=== PATIENT | female | born 1980 | race Caucasian/White ===

== ENCOUNTER 2021-12-26 12:06 | Emergency (ER) | payer OTHER, SELFPAY ==
--- NOTE | ~2021-12-26 | CT_ITS ---
CT head/brain wo IV con CLINICAL INFORMATION: Reason for Exam COY, L eye pain/blurry vision COMPARISON: No prior CT scan available for comparison. TECHNIQUE: Department standard protocol. This CT examination was performed using dose optimization techniques as appropriate, variously including the following: *Automated exposure control *Adjustment of mA and/or kV according to patient size (this includes techniques or standardized protocols for targeted exams where dose is matched to indication/reason for exam; i.e. extremities or head) *Use of iterative reconstruction technique DLP: mGy-cm FINDINGS: CEREBRAL HEMISPHERES: There is no evidence of intra-axial or extra-axial mass, hemorrhage or acute infarct. BRAIN PARENCHYMA: Normal louise-white matter differentiation. SUBDURAL SPACE: No bleed. BASAL GANGLIA AND PINEAL GLAND: Unremarkable VENTRICLES: Symmetric and normal in size. CEREBELLUM AND BRAINSTEM: No space-occupying mass, hemorrhage or acute infarct. CEREBELLOPONTINE ANGLES: No lesion found. ORBITS: No intraorbital mass. VESSELS: Unremarkable SKULL BASE: Unremarkable INCLUDED SINUSES AT SKULL BASE: Mucosal thickening of paranasal sinuses suggesting probably sinus disease. SKULL AND SKIN: No fracture or bone lesion found. CT/CT head/brain wo IV con IMPRESSION: 1. No CT evidence of intracranial space-occupying mass, bleed or infarct. 2. Mucosal thickening of paranasal sinuses suggesting sinus disease.
[2021-12-26 12:11] VITALS: BP 145/68; PULSE 99; RESP 18; O2SAT 99; BMI 28.5
[2021-12-26] MEDS: Butalb/Acetamin/Caff 50/325/40 TABLET 2 TAB PO (15:10)
[2021-12-26] MEDS: Metoclopramide HCl 10 MG TABLET PO (15:10)
--- NOTE | 2021-12-26 16:39 | ED_ITS ---
HPI - General Adult General Chief complaint: Eye Problems Stated complaint: L eye pain Time Seen by Provider: 12/26/21 13:21 Source: patient Mode of arrival: ambulatory Limitations: other ([place] educational interpreter #[id number]) History of Present Illness HPI narrative: 41-year-old female with a past medical history of pterygium s/p surgical excision in [place], migraines, presenting to the ED complaining of left-sided mi graine headache with pain behind left eye and associated blurry vision x1 week. Admits to similar symptoms in the past. Denies headache being maximal at onset. Reports mild associated nausea. Denies vision loss, vomiting, diarrhea, weakness, numbness/tingling. Denies taking anticoagulation. Has been taking Tylenol without relief. Onset (ago): week(s) Related Data Previous Rx's Medication Instructions Recorded azithromycin 250 mg tablet See Rx Instructions PO .COMPLEX #6 12/26/21 tabs [id number] 1 cap PO Q4-6H PRN headache #14 12/26/21 50 mg-300 mg-40 mg capsule caps (Fioricet) Allergies Allergy/AdvReac Type Severity Reaction Status Date / Time No Known Allergies Allergy Verified 12/26/21 14:34 Review of Systems Review of Systems: Constitutional: No Fever, No Chills, No Fatigue, No Malaise ENT/Mouth: No Hearing loss, No Ear Pain, No Nasal Congestion, No Sinus Pain, No sore throat, No Rhinorrhea, No Swallowing Difficulty Eyes: + Eye Pain, No Swelling, No Redness, No Foreign Body, No Discharge, + Vision Changes Cardiovascular: No Chest Pain, No SOB, No Dyspnea on Exertion, No Orthopnea, No Edema, No Palpitations Respiratory: No Cough, No Sputum, No Dyspnea Gastrointestinal: + Nausea, No Vomiting, No Diarrhea, No Constipation, No Abdominal pain Genitourinary: No irregular bleeding, No Dysuria, No Urinary Frequency, No Hematuria, No Urinary Incontinence/retention Musculoskeletal: No joint pain, No Myalgias, No Joint Swelling Skin: No Skin Lesions, No rash Neuro: No Weakness, No Numbness, No Paresthesias, No Loss of Consciousness, No Dizziness, + Headache Yes all other systems are reviewed and are negative Constitutional: Constitutional: Reports as per HPI Neurologic: Denies Abnormal speech present [facility] Past Medical History Attestation statement: The following information was validated with the patient. Social History Social History Advance Directives: No Advance Directives Information Provided: Yes Patient : No Physical Exam ED Vital Signs: Vital Signs - 24 hr 12/26/21 12:11 Pulse Rate 99 Respiratory Rate 18 Blood Pressure 145/68 H Pulse Oximetry 99 Oxygen Delivery Method Room Air BMI result Body Mass Index 28.5 Const General: cooperative, healthy appearing, no acute distress, alert and awake Orientation/consciousness: patient oriented x3 Limitations: no limitations HENMT Head: Yes normal to inspection and Yes atraumatic Ears: hearing grossly normal bilaterally, external ears normal, TM's normal bilaterally and mastoids normal General nose exam: Normal external nose present Face and sinus: Yes normal facial exam Mouth: Normal oral and palatal mucosa present Throat: Yes posterior oropharynx normal, Yes tonsils normal, Yes uvula midline, No peritonsillar mass, No uvula laterally displaced and No uvular edema Eyes General: appearance normal, both eyes and all related structures Periorbital: periorbital findings normal Eyelids: Yes eyelids normal Pupils: Equal, round and reactive pupils present EOM: EOMs intact bilaterally Direct Ophthalmoscopy: normal light reflex and no photophobia Neck Neck: Yes normal visual inspection and Yes no meningeal signs Resp Effort & Inspection: normal respiratory effort, not labored and no respiratory distress Auscultation: clear to auscultation bilaterally Cardio Rate: regular rate Heart sounds: S1 normal heart sound present and S2 normal heart sound present GI Inspection: Yes normal to inspection Skin Rashes: no rashes Wounds: no wounds Neuro General: patient oriented x3, gait normal, tone normal, moves all extremities, no meningeal signs, no focal motor deficits and CN's II-XI intact bilaterally Cranial nerves: Yes CN's II-XII intact bilaterally, Yes Equal, round and reactive pupils present and Yes Bilaterally intact EOM present Cognition (Neuro): normal cognition Speech: No Abnormal speech present Gait exam (Neuro): Normal gait present Motor exam (neuro): 5/5 motor strength present throughout, Pronator motor function not present and no tremor noted Coordination: rvdehq-xo-uwdy test normal Romberg Test: Negative Extrem General: Yes normal to inspection Course Course Course Narrative: CT head/brain wo IV con IMPRESSION: 1.? No CT evidence of intracranial space-occupying mass, bleed or infarct. 2.? Mucosal thickening of paranasal sinuses suggesting sinus disease. ? >> results discussed with patient with [place] educational interpreter #[id number]. Patient reports symptomatic improvement, near resolution after medications given in the emergency department. Patient also mentioned dyspareunia x years. Recommended patient follow-up with OBGYN. Also recommend patient follows up with Neurology and Ophthalmology Results discussed with patient including worrisome signs and symptoms and strict return precautions, and when to return to the emergency department. They verbalized understanding and feel safe for discharge at this time. Medications Administered Discontinued Medications Generic Name Dose Route Start Last Admin Trade Name Freq PRN Reason Stop Dose Admin Acetaminophen/Butalbital/Caffeine 2 tab 12/26/21 14:34 12/26/21 15:10 Butalb/Acetamin/Caff 50/325/40 Tablet PO 12/26/21 14:35 2 tab ONCE ONE Administration Metoclopramide HCl 10 mg 12/26/21 14:34 12/26/21 15:10 Metoclopramide Hcl 10 Mg Tablet PO 12/26/21 14:35 10 mg ONCE ONE Administration Medical Decision Making [facility] Narrative Medical decision making narrative: 41-year-old female with a past medical history of pterygium s/p surgical excision in [place], migraines, presenting to the ED complaining of left-sided migraine headache with pain behind left eye and associated blurry vision x1 week. On exam vital signs stable, NAD, nontoxic appearing, no focal neuro deficits, visual acuity 20/20 bilaterally. Concern for tension headache/migraine. Lower suspicion for ICH/cervical dissection/CVT or CVA/TIA. Plan: Head CT, pain management, re-evaluate Medical Records Medical records reviewed: Yes I reviewed the patient's medical records. Lab Data Lab results reviewed: Yes I reviewed the patient's lab results. Discharge Plan Discharge Clinical Impression: Acute tension headache, Pterygium Patient Disposition: Home, Self-Care Instructions: Tension Headache (ED), Pterygium (ED) Additional Instructions: Your head CT shows mild sinusitis, no other acute findings. Azithromax in as an antibiotic please take as prescribed Fioricet is for headaches, take as needed It is important for you to follow-up with Neurology, Ophthalmology, and OBGYN If her symptoms persist or worsen, you have constant worsening headache, vision loss, weakness return to the emergency department Sua tomografia de cr?nio mostra sinusite leve, bernardo outros achados agudos. Azithromax tan antibi?kirti, por favor, tome conforme prescrito Fioricet ? para dores de cabe?a, tome conforme necess?mayra ? importante que voc? fa?a acompanhamento com Neurologia, Oftalmologia e OBGYN Se os sintomas tomas persistirem ou piorarem, voc? tem piora rosa da sid de cabe?a, perda de vis?o, fraqueza retornar ao pronto-tai Prescriptions: New azithromycin 250 mg tablet See Rx Instructions .ROUTE .COMPLEX Qty: 6 0RF Rx Instructions: take 500 mg today (day 1), then 250 mg for 4 days (days 2-5) [id number]-[id number] [Fioricet] 50-300-40 mg capsule 1 cap PO Q4-6H PRN (Reason: headache) Qty: 14 0RF Referrals: [facility] [place] [facility] [Provider Group] [facility] [place] [facility] [Provider Group] Kain Casper [Physician] -
== END 2021-12-26 17:22 | disposition home or self-care (01) ==
PROVIDERS: Emergency Provider Emergency Medicine
DX: G44.209 Tension-type headache, unspecified, not intractable (principal); H11.002 Unspecified pterygium of left eye; H57.12 Ocular pain, left eye
CPT/HCPCS: 70450; 99283

== ENCOUNTER 2022-01-18 09:36 | Emergency (ER) | payer OTHER, SELFPAY ==
--- NOTE | ~2022-01-18 | CT_ITS ---
EXAMINATION: CT ABDOMEN AND PELVIS WITH CONTRAST CLINICAL INFORMATION: Pain COMPARISON: None TECHNIQUE: Multidetector volumetric images were obtained from the superior aspect of the liver through the pubic symphysis following administration 85 mL of Omnipaque 350 intravenous contrast. Sagittal and coronal reformatted images were obtained on the technologist's workstation. Oral contrast: None This CT examination was performed using dose optimization techniques as appropriate, variously including the following: *Automated exposure control *Adjustment of mA and/or kV according to patient size (this includes techniques or standardized protocols for targeted exams where dose is matched to indication/reason for exam; i.e. extremities or head) *Use of iterative reconstruction technique DLP: 377 mGy-cm FINDINGS: LUNG BASES: The visualized lung bases are unremarkable. LIVER, GALLBLADDER, AND BILIARY TREE: There is a lobular cyst, in the anterior right lobe liver at 17 mm. Liver is otherwise unremarkable. There is no biliary dilatation. The gallbladder is unremarkable with no evidence of radiopaque gallstones, gallbladder wall thickening, or obvious pericholecystic inflammatory changes. PANCREAS: Unremarkable. SPLEEN: Unremarkable. ADRENAL GLANDS: Unremarkable. KIDNEYS AND URETERS: The kidneys are normal in size, shape, and attenuation. No hydronephrosis, hydroureter, or calculi seen. No perinephric stranding. BLADDER: Bladder is thick walled and decompressed with mass effect on the left aspect of the bladder from the large fibroid. GASTROINTESTINAL TRACT: No bowel obstruction or right or left lower quadrant inflammatory change. Appendix is not clearly seen. Ileal loops however do appears slightly thickened and fluid-filled which could reflect enteritis. ABDOMINAL WALL: No significant hernia is appreciated. LYMPH NODES: Normal. VASCULAR: Unremarkable. PELVIC VISCERA: Abnormal. There is a large mass, within the anterior body of the uterus likely a fibroid. The mass appears to be intramural, at approximately 4.9 x 6.0 cm. Ultrasound with endovaginal technique. There is some fluid in the cul-de-sac and adjacent to the left ovary. Right adnexa unremarkable. OSSEOUS STRUCTURES: Mild wedge compression deformities in the lower thoracic spine are probably old. CT/CT abdomen pelvis w IV con IMPRESSION: Fibroid uterus. Physiologic process left ovary. Fluid-filled ileal loops may reflect enteritis. Recommend pelvic ultrasound with endovaginal technique.
--- NOTE | ~2022-01-18 | US_ITS ---
EXAMINATION: US PELVIS CLINICAL INFORMATION: Further evaluation of uterine lesions noted on prior CT. COMPARISON: CT abdomen/pelvis performed earlier today at 3:38 PM. TECHNIQUE: Ultrasound of the pelvis is performed using both transabdominal and transvaginal transducers along with Doppler. Transvaginal imaging is performed due to inadequate visualization transabdominally. FINDINGS: The uterus is enlarged measuring 9.4 x 6.8 x 8.1 cm with an anteverted and anteflexed orientation. There is a 6.6 x 5.6 x 5.5 cm lesion in the left upper myometrium. No other discrete focal lesion. The endometrium measures 1.5 cm without focal abnormality. The left ovary is asymmetrically enlarged when compared to the right ovary measuring 3.6 x 2.2 x 3.5 cm (14.5 mL) versus 2.7 x 2 x 2.1 cm (6 mL). There is preserved flow to both ovaries at the moment of this examination. There are nonspecific hyperechoic foci in the periphery of the right ovary. Nabothian cysts are seen in the cervix. There is a small volume of free fluid in the cul-de-sac and surrounding the left ovary. US/US pelvic and transvaginal IMPRESSION: Redemonstration of a 6.6 cm intramural left upper uterine mass, which statistically is seen favored to represent a fibroid. Given size, consider SURGICAL INSTRUMENT TECHNICIAN referral and edema appropriate correlation with a pelvic MRI. Nonspecific asymmetric enlargement of the left ovary, possibly associated with a corpus luteal cyst that is best noted on same-day CT. There is preserved flow to both ovaries. Hyperechoic foci in the periphery of the right ovary are nonspecific, possibly tiny calcifications. A follow-up pelvic ultrasound could be obtained in 6-12 weeks to reevaluate. Small amount of free fluid, likely physiologic.
[2022-01-18 09:44] VITALS: BP 122/87; PULSE 95; RESP 16; TEMP 36.9; O2SAT 99; BMI 24.5
[2022-01-18 09:58] LABS: MANUAL DIFF FLAG NO
[2022-01-18 10:00] LABS: Basophils Percent Auto 0.3 % (0-2); Eosinophils Percent Auto 0.3 % (0-4); Hematocrit 40.8 % (37.0-47.0); Hemoglobin 13.6 g/dl (12.0-16.0); Imm Gran Abs Auto 0.05 X10*3/uL (0.00-0.03); Imm Gran Pct Auto 0.3 % (0.0-0.4); Lymphocytes Absolute Auto 2.8 X10*3/uL (1.2-4.9); Lymphocytes Percent Auto 18.4 % (20-40); Mean Corpuscular HGB Conc 33.3 g/dl (31.0-35.0); Mean Corpuscular Hemoglobin 29.1 pg (27.0-33.0); Mean Corpuscular Volume 87.2 fL (80.0-98.0); Mean Platelet Volume 10.4 fL (9.4-12.3); Monocytes Absolute Auto 0.9 X10*3/uL (0.1-1.2); Monocytes Percent Auto 5.9 % (2-11); Neutrophils Absolute Auto 11.5 x10*3/uL (2.0-8.3); Neutrophils Percent Auto 74.8 % (45-73); Platelet Count 205 X10*3/uL (160-400); Red Blood Count 4.68 X10*6/uL (4.20-5.50); Red Cell Distribution Width 12.2 % (11.0-16.0); White Blood Count 15.3 X10*3/uL (4.8-10.8)
[2022-01-18 10:02] LABS: Appearance Urine Cloudy; Color Urine Dark Yellow; Glucose Urine UA Negative (Negative); Leukocyte Esterase Urine Large (3+) (Negative); Nitrite Urine Positive (Negative); PH 6.5 (5.0-9.0); UMIC TRIGGER UACC YES; UPreg QC Valid YES; Urine Blood Large (3+) (Negative); Urine Ketones Negative (Negative); Urine Protein 100 (2+) mg/dL (Neg-Trace)
[2022-01-18 10:03] LABS: Urine Pregnancy NEGATIVE (NEGATIVE)
[2022-01-18 10:10] LABS: Bacteria Urine 4+ (None Seen); Hyaline Casts Urine 0-2 /LPF (0-2); UACC Culture Trigger YES; WBC Clumps Urine Present; WBC Urine >50 /HPF (0-5)
[2022-01-18 10:21] LABS: Anion Gap 11 (12-20); Blood Urea Nitrogen 10 mg/dL (9-16); Carbon Dioxide 28 mmol/L (22-29); Chloride 105 mmol/L (96-108); Creatinine Clr Calc Pharmacy 96.5; Estimated Glomerular Filt Rate > 60; Glucose Random 103 mg/dL (60-115); Potassium 3.5 mmol/L (3.3-5.1); Sodium 140 mmol/L (135-145)
--- NOTE | 2022-01-18 14:27 | ED_ITS ---
HPI - General Adult General Chief complaint: Abdominal Pain <HUMERA Norris Last Filed: 01/18/22 17:57> Stated complaint: Abd pain sent from urgent care <HUMERA Norris Last Filed: 01/18/22 17:57> Time Seen by Provider: 01/18/22 14:27 <HUMERA Norris Last Filed: 01/18/22 17:57> Source: patient and japanese interpreter <HUMERA Norris Last Filed: 01/18/22 17:57> Mode of arrival: ambulatory <HUMERA Norris Last Filed: 01/18/22 17:57> Limitations: language barrier <HUMERA Norris Last Filed: 01/18/22 17:57> History of Present Illness HPI narrative: Patient is a 41 year old assigned female at with no reported medical history presenting to the emergency department today with abdominal pain. Patient states that over the last 3 days she has had lower abdominal pain and bilateral back pain. Patient denies any dizziness, lightheadedness, nausea, vomiting, fever, chills, blurry vision, double vision, loss of vision, chest pain, difficulty breathing, shortness of breath, night sweats, pain with urinat ion, increased urinary frequency, increased urinary urgency, blood in her urine or stool, syncope or a near syncopal episode, recent trauma or falls, bowel incontinence, bladder incontinence, bowel retention, bladder retention, or any other complaints at this time. <HUMERA Norris Last Filed: 01/18/22 17:57> Onset (ago): day(s) (3) <HUMERA Norris Last Filed: 01/18/22 17:57> Location: back and abdomen <HUMERA Norris Last Filed: 01/18/22 17:57> Severity: mild <HUMERA Norris Last Filed: 01/18/22 17:57> Severity scale (1-10): 3 <HUMERA Norris Last Filed: 01/18/22 17:57> Quality: aching and dull <HUMERA Norris Last Filed: 01/18/22 17:57> Pain Consistency: constant <HUMERA Norris Last Filed: 01/18/22 17:57> Relieving factors: none <HUMERA Norris - Last Filed: 01/18/22 17:57> Exacerbating factors: none <HUMERA Norris - Last Filed: 01/18/22 17:57> Associated symptoms: denies other symptoms <HUMERA Norris - Last Filed: 01/18/22 17:57> Treatments prior to arrival: none <HUMERA Norris - Last Filed: 01/18/22 17:57> Related Data Home medications: Previous Rx's Medication Instructions Recorded azithromycin 250 mg tablet See Rx Instructions PO .COMPLEX #6 12/26/21 tabs [id number]-jzhfzzskjnjcy-pocfvtck 1 cap PO Q4-6H PRN headache #14 12/26/21 50 mg-300 mg-40 mg capsule caps (Fioricet) cephalexin 500 mg capsule 500 mg PO Q6H 7 days #28 caps 01/18/22 <HUMERA Norris - Last Filed: 01/18/22 17:57> Allergies/adverse reactions: Allergies Allergy/AdvReac Type Severity Reaction Status Date / Time No Known Allergies Allergy Verified 12/26/21 14:34 <HUMERA Norris - Last Filed: 01/18/22 17:57> Review of Systems Constitutional: Constitutional: Reports no additional constitutional complaints, Denies chills, Denies fever(s) and Denies night sweats <HUMERA Norris - Last Filed: 01/18/22 17:57> Eyes: Eyes: Reports no additional eye complaints, Denies blurry vision, Denies change in vision, Denies diplopia, Denies eye discharge, Denies loss of vision and Denies eye pain <HUMERA Norris - Last Filed: 01/18/22 17:57> ENT: Denies dizziness <HUMERA Norris - Last Filed: 01/18/22 17:57> Cardiovascular: Cardiovascular: Reports no additional cardiovascular complaints, Denies chest pain, Denies lightheadedness, Denies Loss of Consciousness and Denies dyspnea <HUMERA Norris - Last Filed: 01/18/22 17:57> Respiratory: Respiratory: Reports no additional respiratory complaints and Denies dyspnea <HUMERA Norris - Last Filed: 01/18/22 17:57> Gastrointestinal: Gastrointestinal: Reports no additional gastrointestinal complaints, Reports abdominal pain, Denies melena, Denies hematochezia, Denies change in bowel habits and Denies change in stool character <HUMERA Norris - Last Filed: 01/18/22 17:57> Genitourinary: Genitourinary: Denies hematuria, Denies urinary frequency, Denies dysuria, Denies urinary incontinence, Denies urinary hesitancy and Denies urinary urgency <HUMERA Norris - Last Filed: 01/18/22 17:57> Musculoskeletal: Musculoskeletal: Reports no additional musculoskeletal complaints, Reports back pain, Denies numbness and Denies tingling <HUMERA Norris - Last Filed: 01/18/22 17:57> Neurologic: Denies dizziness, Denies loss of vision, Denies numbness and Denies tingling <HUMERA Norris - Last Filed: 01/18/22 17:57> Psychiatric: Psychiatric: Reports no additional psychiatric complaints <HUMERA Norris Last Filed: 01/18/22 17:57> Endocrine: Endocrine: Reports no additional endocrine complaints <HUMERA Norris - Last Filed: 01/18/22 17:57> Hematologic/Lymphatic: Hematologic/Lymphatic: Reports no additional hematologic/lymphatic complaints <HUMERA Norris Last Filed: 01/18/22 17:57> Allergic/Immunologic: Allergic/Immunologic: Reports no additional allergic/immunologic complaints <HUMERA Norirs - Last Filed: 01/18/22 17:57> REPLACED BY [facility] Past Medical History Attestation statement: The following information was validated with the patient. <HUMERA Norris Last Filed: 01/18/22 17:57> Source: old records reviewed <HUMERA Norris Last Filed: 01/18/22 17:57> Social History Social History: Social History Advance Directives: No Advance Directives Information Provided: Yes <HUMERA Norris - Last Filed: 01/18/22 17:57> Physical Exam ED Vital Signs: Vital Signs - 24 hr 01/18/22 09:44 01/18/22 15:02 12/06/22 18:33 Temperature 98.5 F 98.6 F Pulse Rate 95 95 79 Respiratory Rate 16 18 14 Blood Pressure 122/87 124/70 108/63 Pulse Oximetry 99 98 100 Oxygen Delivery Method Room Air Room Air Room Air BMI result Body Mass Index 24.5 <HUMERA Norris - Last Filed: 01/18/22 17:57> Vital Signs - 24 hr 01/18/22 09:44 01/18/22 15:02 01/18/22 18:33 Temperature 98.5 F 98.6 F Pulse Rate 95 95 79 Respiratory Rate 16 18 14 Blood Pressure 122/87 124/70 108/63 Pulse Oximetry 99 98 100 Oxygen Delivery Method Room Air Room Air Room Air BMI result Body Mass Index 24.5 <HUMERA Nettles - Last Filed: 01/18/22 18:50> Const General: cooperative, no acute distress, alert and awake <HUMERA Norris - Last Filed: 01/18/22 17:57> Nutritional Appearance: well nourished <HUMERA Norris - Last Filed: 01/18/22 17:57> Orientation/consciousness: patient oriented x3 <HUMERA Norris Last Filed: 01/18/22 17:57> Limitations: no limitations <HUMERA Norris - Last Filed: 01/18/22 17:57> HENMT Head: Yes normal to inspection and Yes atraumatic <HUMERA Norris - Last Filed: 01/18/22 17:57> Ears: hearing grossly normal bilaterally and external ears normal <HUMERA Norris - Last Filed: 01/18/22 17:57> General nose exam: Normal external nose present, no nasal discharge noted and no epistaxis <HUMERA Norris - Last Filed: 01/18/22 17:57> Face and sinus: Yes normal facial exam, No abrasion and No laceration <HUMERA Norris Last Filed: 01/18/22 17:57> Mouth: Normal oral and palatal mucosa present, no drooling and no muffled voice <HUMERA Norris - Last Filed: 01/18/22 17:57> Eyes General: appearance normal, both eyes and all related structures <Eli Garcia [place] - Last Filed: 01/18/22 17:57> Periorbital: periorbital findings normal <Eli Garcia [place] - Last Filed: 01/18/22 17:57> Eyelids: Yes eyelids normal <Eli Garcia [place] - Last Filed: 01/18/22 17:57> Conjunctivae: conjunctivae normal <Eli Garcia [place] - Last Filed: 01/18/22 17:57> Pupils: Equal, round and reactive pupils present <Eli Garcia [place] - Last Filed: 01/18/22 17:57> EOM: EOMs intact bilaterally <Eli Garcia [place] - Last Filed: 01/18/22 17:57> Neck Neck: Yes normal visual inspection, Yes full ROM and Yes no lymphadenopathy <Eli Garcia [place] - Last Filed: 01/18/22 17:57> Chest Chest palpation & inspection: normal inspection of the chest <Eli Garcia [place] - Last Filed: 01/18/22 17:57> Resp Effort & Inspection: normal respiratory effort and able to speak in complete sentences <Eli Garcia [place] - Last Filed: 01/18/22 17:57> Auscultation: clear to auscultation bilaterally <Eli Garcia [place] - Last Filed: 01/18/22 17:57> Cardio Rate: regular rate <Eli Garcia [place] - Last Filed: 01/18/22 17:57> Rhythm: regular rhythm <Eli Garcia [place] - Last Filed: 01/18/22 17:57> GI Inspection: Yes normal to inspection <Eli Garcia [place] - Last Filed: 01/18/22 17:57> Palpation (GI): Soft to palpation, not firm, nontender, no guarding and not rigid <Eli Garcia [place] - Last Filed: 01/18/22 17:57> Neuro General: patient oriented x3 and moves all extremities <Eli Garcia [place] - Last Filed: 01/18/22 17:57> Cranial nerves: Yes Equal, round and reactive pupils present <Eli Nevesmicky [place] - Last Filed: 01/18/22 17:57> Cognition (Neuro): normal cognition <EliHUMERA Vincent - Last Filed: 01/18/22 17:57> Motor exam (neuro): 5/5 motor strength present throughout <HUMERA Norris - Last Filed: 01/18/22 17:57> Sensory Exam: Normal double simultaneous stimulation for sensation <HUMERA Norris - Last Filed: 01/18/22 17:57> Coordination: egfrkq-le-uktl test normal <HUMERA Norris - Last Filed: 01/18/22 17:57> Extrem General: Yes normal to inspection, Yes full ROM and Yes capillary refill normal <HUMERA Norris - Last Filed: 01/18/22 17:57> Psych Appearance: grossly normal <HUMERA Norris - Last Filed: 01/18/22 17:57> Mental Status: mental status grossly normal <HUMERA Norris - Last Filed: 01/18/22 17:57> Affect: normal affect <HUMERA Norris - Last Filed: 01/18/22 17:57> Attitude: cooperative <HUMERA Norris - Last Filed: 01/18/22 17:57> Thought process: Normal thought process present <HUMERA Norris - Last Filed: 01/18/22 17:57> Thought content: Normal thought content present <HUMERA Norris - Last Filed: 01/18/22 17:57> Insight: Good insight present (Psych) <HUMERA Norris - Last Filed: 01/18/22 17:57> Course Reevaluation(s) Reevaluation #1: Ultrasound showing redemonstrated 6.6 intramural left upper uterine mass which was likely fibroid. Asymmetric enlargement of left ovary. Normal flow to both ovaries. Possible calcifications in the right ovary. Advised to follow-up with OBGYN. Outlined worrisome signs and symptoms on discharge gave her follow- up with OBGYN. Comfortable discharge <HUMERA Nettles - Last Filed: 01/18/22 18:50> Time: 18:50 <HUEMRA Nettles - Last Filed: 01/18/22 18:50> Medications Administered Discontinued Medications Generic Name Dose Route Start Last Admin Trade Name Freq PRN Reason Stop Dose Admin Iohexol 100 ml 01/18/22 15:41 12/06/22 15:42 Iohexol 350 Mg/Ml 100 Ml Infus..Btl IV 01/18/22 15:42 85 ml ONCE ONE Administration Ketorolac Tromethamine 15 mg 01/18/22 14:30 01/18/22 16:07 Ketorolac Tromethamine 15 Mg/Ml Vial IVPUSH 01/18/22 14:31 15 mg ONCE ONE Administration Morphine Sulfate 4 mg 01/18/22 14:30 01/18/22 16:07 Morphine Sulfate 4 Mg/Ml Cartridge IVPUSH 01/18/22 14:31 4 mg ONCE ONE Administration Protocol Ondansetron HCl 4 mg 01/18/22 14:30 01/18/22 16:08 Ondansetron Hcl 4 Mg/2 Ml Vial IVPUSH 01/18/22 14:31 4 mg ONCE ONE Administration <HUMERA Norris - Last Filed: 01/18/22 17:57> Medications Administered Discontinued Medications Generic Name Dose Route Start Last Admin Trade Name Lacey PRN Reason Stop Dose Admin Iohexol 100 ml 01/18/22 15:41 01/18/22 15:42 Iohexol 350 Mg/Ml 100 Ml Infus..Btl IV 01/18/22 15:42 85 ml ONCE ONE Administration Ketorolac Tromethamine 15 mg 01/18/22 14:30 01/18/22 16:07 Ketorolac Tromethamine 15 Mg/Ml Vial IVPUSH 01/18/22 14:31 15 mg ONCE ONE Administration Morphine Sulfate 4 mg 01/18/22 14:30 01/18/22 16:07 Morphine Sulfate 4 Mg/Ml Cartridge IVPUSH 01/18/22 14:31 4 mg ONCE ONE Administration Protocol Ondansetron HCl 4 mg 01/18/22 14:30 01/18/22 16:08 Ondansetron Hcl 4 Mg/2 Ml Vial IVPUSH 01/18/22 14:31 4 mg ONCE ONE Administration <HUMERA Nettles - Last Filed: 01/18/22 18:50> Medical Decision Making Medical Decision Making MDM Narrative: Patient is a 41 year old assigned female at with no reported medical history presenting to the emergency department today with abdominal pain. Patient's physical exam was unremarkable. Patient's blood work showed an elevated WBC count of 15.3. Patient's urine showed a possible UTI. Patient's abdominal CT showed a 4.9 x 6.0 cm mass in the uterus the radiologist believes to be a fibroid but recommends pelvis US. Fluid filled ileal loops are also seen which may represent enteritis. Patient's pelvic US is pending. I explained my physical exam findings as well as all test results to the patient. I answered all questions asked by the patient. Patient signed out to [employer]. <HUMERA Norris - Last Filed: 01/18/22 17:57> Differential Diagnoses: Differential diagnosis Differential Diagnosis: The differential diagnosis associated with the patient?s presentation includes: uterine fibroids, UTI <HUMERA Norris - Last Filed: 01/18/22 17:57> Lab Attestation: I reviewed the patient's lab results. <HUMERA Norris - Last Filed: 01/18/22 17:57> Independent interpretation of EKG, rhythm strip, radiology study: Independent interp EKG,rhythm strip, radiology study (This is not my interpretation but rather the radiologist's interpretation per their report) I performed an independent interpretation of the: CT Scan EXAMINATION: CT ABDOMEN AND PELVIS WITH CONTRAST? CLINICAL INFORMATION: Pain? COMPARISON: None? TECHNIQUE: Multidetector volumetric images were obtained from the superior aspect of the liver through the pubic symphysis following administration 85 mL of Omnipaque 350 intravenous contrast. Sagittal and coronal reformatted images were obtained on the technologist's workstation.? Oral contrast: None This CT examination was performed using dose optimization techniques as appropriate, variously including the following: *Automated exposure control *Adjustment of mA and/or kV according to patient size (this includes techniques or standardized protocols for targeted exams where dose is matched to indication/reason for exam; i.e. extremities or head) *Use of iterative reconstruction technique DLP: 377 mGy-cm FINDINGS: LUNG BASES: The visualized lung bases are unremarkable.? LIVER, GALLBLADDER, AND BILIARY TREE: There is a lobular cyst, in the anterior right lobe liver at 17 mm. Liver is otherwise unremarkable. There is no biliary dilatation. The gallbladder is unremarkable with no evidence of radiopaque gallstones, gallbladder wall thickening, or obvious pericholecystic inflammatory changes.? PANCREAS: Unremarkable.? SPLEEN: Unremarkable.? ADRENAL GLANDS: Unremarkable.? KIDNEYS AND URETERS: The kidneys are normal in size, shape, and attenuation. No hydronephrosis, hydroureter, or calculi seen. No perinephric stranding. ? BLADDER: Bladder is thick walled and decompressed with mass effect on the left aspect of the bladder from the large fibroid.? GASTROINTESTINAL TRACT: No bowel obstruction or right or left lower quadrant inflammatory change. Appendix is not clearly seen. Ileal loops however do appears slightly thickened and fluid-filled which could reflect enteritis. ABDOMINAL WALL: No significant hernia is appreciated.? LYMPH NODES: Normal. VASCULAR: Unremarkable. PELVIC VISCERA: Abnormal. There is a large mass, within the anterior body of the uterus likely a fibroid. The mass appears to be intramural, at approximately 4.9 x 6.0 cm. Ultrasound with endovaginal technique. There is some fluid in the cul-de-sac and adjacent to the left ovary. Right adnexa unremarkable.? OSSEOUS STRUCTURES: Mild wedge compression deformities in the lower thoracic spine are probably old.? CT/CT abdomen pelvis w IV con IMPRESSION: Fibroid uterus. Physiologic process left ovary. Fluid-filled ileal loops may reflect enteritis. Recommend pelvic ultrasound with endovaginal technique. Dictated By: Wei Adair MD Signed By: Electronically signed by Wei Adair MD 01/18/22 3213 <HUMERA Norris - Last Filed: 01/18/22 17:57> Discharge Plan Discharge Clinical Impression: Enteritis, Uterine fibroid, Urinary tract infection <HUMERA Norris - Last Filed: 01/18/22 17:57> Patient Disposition: Still a Patient <HUMERA Norris - Last Filed: 01/18/22 17:57> Instructions: Urinary Tract Infection in Women (ED), Enteritis (ED) <HUMERA Norris - Last Filed: 01/18/22 17:57> Additional Instructions: Follow up with your primary care provider and your OBGYN. Return to the emergency department immediately if your symptoms worsen or if you develop any dizziness, shortness of breath, difficulty breathing, chest pain, blurry vision, loss of vision, nausea, vomiting, abdominal pain, fever, chills, back pain, or any other complaints. US/US pelvic and transvaginal IMPRESSION: Redemonstration of a 6.6 cm intramural left upper uterine mass, which statistically is seen favored to represent a fibroid. Given size, consider HEAVY EQUIPMENT RENTAL MANAGER referral and edema appropriate correlation with a pelvic MRI. ? Nonspecific asymmetric enlargement of the left ovary, possibly associated with a corpus luteal cyst that is best noted on same-day CT. There is preserved flow to both ovaries. ? Hyperechoic foci in the periphery of the right ovary are nonspecific, possibly tiny calcifications. A follow-up pelvic ultrasound could be obtained in 6-12 weeks to reevaluate. ? Small amount of free fluid, likely physiologic. IMPRESSION: Fibroid uterus. Physiologic process left ovary. Fluid-filled ileal loops may reflect enteritis. Recommend pelvic ultrasound with endovaginal technique. <HUMERA Norris - Last Filed: 01/18/22 17:57> Prescriptions: New cephalexin 500 mg capsule 500 mg PO Q6H 7 Days Qty: 28 0RF No Action azithromycin 250 mg tablet See Rx Instructions .ROUTE .COMPLEX Qty: 6 0RF Rx Instructions: take 500 mg today (day 1), then 250 mg for 4 days (days 2-5) hfgnqjhfgj-waeajjfbtqxpu-inpv [Fioricet] 50-300-40 mg capsule 1 cap PO Q4-6H PRN (Reason: headache) Qty: 14 0RF <HUMERA Norris - Last Filed: 01/18/22 17:57> Referrals: [facility] [Provider Group] (Call to establish and follow up with a primary care provider. If you already have a primary care provider, please follow up with them. ) [facility], [place] [Provider Group] (Call to establish and follow up with a primary care provider. If you already have a primary care provider, pl ease follow up with them. ) [facility],[place] [Provider Group] (Call to establish and follow up with a primary care provider. If you already have a primary care provider, please follow up with them. ) Topher Trent MD [Physician] - (Call to establish and follow up with an OB. ) <HUMERA Norris - Last Filed: 01/18/22 17:57> Stand Alone Forms: Work/School Release <HUMERA Norris - Last Filed: 01/18/22 17:57>
[2022-01-18 15:02] VITALS: BP 124/70; PULSE 95; RESP 18; TEMP 37; O2SAT 98
[2022-01-18] MEDS: iohexoL 350 MG/ML 100 ML INFUS..BTL IV (15:42)
[2022-01-18] MEDS: Ketorolac Tromethamine 15 MG/ML VIAL IVPUSH (16:07)
[2022-01-18] MEDS: Morphine Sulfate 4 MG/ML CARTRIDGE IVPUSH (16:07)
[2022-01-18] MEDS: ondansetron HCL 4 MG/2 ML VIAL IVPUSH (16:08)
[2022-01-18 18:33] VITALS: BP 108/63; PULSE 79; RESP 14; O2SAT 100
== END 2022-01-18 19:00 | disposition still patient (30) ==
PROVIDERS: Emergency Provider Internal Medicine
DX: D25.9 Leiomyoma of uterus, unspecified (principal); N39.0 Urinary tract infection, site not specified; K52.9 Noninfective gastroenteritis and colitis, unspecified; R10.9 Unspecified abdominal pain; M54.50 Low back pain, unspecified; Z79.899 Other long term (current) drug therapy
CPT/HCPCS: 36415; 74177; 76830; 76856; 80048; 81001; 81003; 81025; 85025; 87086; 87088; 87186; 96374; 96375; 99284; J1885; J2270; J2405; Q9967

== ENCOUNTER 2022-02-15 13:22 | Inpatient (IN) | payer OTHER, SELFPAY ==
--- NOTE | ~2022-02-15 | US_ITS ---
EXAMINATION: US ABDOMEN LIMITED CLINICAL INFORMATION: Mass in right lobe of liver. COMPARISON: CT imaging of the abdomen from 01/18/2022 and 02/15/2022. TECHNIQUE: Real-time imaging of the right upper quadrant abdominal viscera. FINDINGS: PANCREAS: Normal. LIVER: Liver has normal size and contour. 1.9 cm cyst of hepatic segment 4A has a thin septation. No imaging follow-up is recommended for this benign finding. No suspicious liver lesion. No evidence of a solid liver mass. GALLBLADDER: Normal. The gallbladder is physiologically distended without evidence of stones, sludge, polyps, wall thickening or pericholecystic fluid. COMMON BILE DUCT: Normal in caliber measuring 0.5 cm in diameter. RIGHT KIDNEY: Normal. No hydronephrosis. No renal calculi or focal parenchymal lesions. The kidney measures 12 cm in maximum dimension. FREE FLUID: None. US/US abdomen limited IMPRESSION: 1.9 cm cyst is present in hepatic segment 4A.
--- NOTE | ~2022-02-15 | CT_ITS ---
EXAMINATION: CT ABDOMEN AND PELVIS WITH CONTRAST CLINICAL INFORMATION: Bilateral flank pain COMPARISON: CT abdomen and pelvis 01/18/2022 TECHNIQUE: Multidetector volumetric images were obtained from the superior aspect of the liver through the pubic symphysis following administration 85 mL of Omnipaque 350 intravenous contrast. Sagittal and coronal reformatted images were obtained on the technologist's workstation. Oral contrast: No This CT examination was performed using dose optimization techniques as appropriate, variously including the following: *Automated exposure control *Adjustment of mA and/or kV according to patient size (this includes techniques or standardized protocols for targeted exams where dose is matched to indication/reason for exam; i.e. extremities or head) *Use of iterative reconstruction technique DLP: 462 mGy-cm FINDINGS: LUNG BASES: The visualized lung bases are unremarkable. LIVER, GALLBLADDER, AND BILIARY TREE: The liver is enlarged measuring 18.6 cm in cephalocaudad dimension in size, shape, and attenuation. 2.4 cm hypoattenuating mass present in the right lobe of the liver that measures 37 Hounsfield units and cannot be called a simple cyst based upon this study. Liver ultrasound could be performed for further evaluation No additional focal hepatic lesion or biliary ductal dilatation is present. The gallbladder is unremarkable with no evidence of radiopaque gallstones, gallbladder wall thickening, or obvious pericholecystic inflammatory changes. PANCREAS: Unremarkable. SPLEEN: Unremarkable. ADRENAL GLANDS: Unremarkable. KIDNEYS AND URETERS: The kidneys are normal in size and shape. The left kidney, there is marked striated nephrogram with areas of hypoattenuation extending out to the cortical surface. Findings are consistent with acute bacterial nephritis, probably on the left. No hydronephrosis, hydroureter, or calculi seen. No perinephric stranding. BLADDER: Unremarkable. GASTROINTESTINAL TRACT: The small and large bowel are unremarkable. The appendix is none identified with certainty but there is certainly no evidence of appendicitis. ABDOMINAL WALL: No significant hernia is appreciated. LYMPH NODES: No retroperitoneal lymphadenopathy. VASCULAR: Unremarkable. PELVIC VISCERA: Again seen is an enlarged anteverted uterus with multiple fibroids the largest measuring 7.1 x 7.1 x 5.7 cm. The right ovary contains a possible collapsed cyst with slightly enhancing mobley (3:69). No free intraperitoneal fluid. OSSEOUS STRUCTURES: Minimal compression of the superior endplates of T10 and T11 with Schmorl's nodes. CT/CT abdomen pelvis w IV con IMPRESSION: 1. Acute left-sided bacterial nephritis with striated left nephrogram. 2. Incidental note made of mild hepatomegaly with a 2.4 cm hypoattenuating mass in the right lobe of the liver. Liver ultrasound is recommended for further evaluation. 3. Enlarged fibroid uterus. 4. Possible collapsed right ovarian cyst. Fleischner guidelines were followed. This critical result was discussed with HUMERA Nettles at 11:55 PM on the day of the examination and it was ascertained that the content and urgency of the report was understood at the time of direct communication.
--- NOTE | ~2022-02-15 | XR_ITS ---
EXAMINATION: XR CHEST CLINICAL INFORMATION: Chest pain and shortness of breath COMPARISON: None TECHNIQUE: Frontal view of the chest was obtained. FINDINGS: Right basilar atelectasis is present laterally. Otherwise, no significant abnormality is noted involving the heart, lungs, mediastinum, bony thorax or soft tissues. XR/XR chest 1V IMPRESSION: No acute intrathoracic disease.
--- NOTE | ~2022-02-15 | US_ITS ---
EXAMINATION: US PELVIS CLINICAL INFORMATION: Abdominal pain. History of uterine mass, fibroid. COMPARISON: Pelvic ultrasound from 01/18/2022 TECHNIQUE: Ultrasound of the pelvis is performed using both transabdominal and transvaginal transducers. FINDINGS: UTERUS AND CERVIX The anteflexed, anteverted uterus measures 10.5 x 7 x 8.5 cm ([id number]-lw-bakbrd x AP x transverse dimension). There are small nabothian cysts of the cervix. A heterogeneous left-sided intramural leiomyoma measures up to 6.2 cm maximum dimension (image 20 of 69). No new uterine abnormality compared to 01/18/2022. The endometrium measures 0.7 cm in AP thickness (image 8 of 69). ADNEXA: The right ovary is 4.3 x 3 x 3.2 cm and mildly enlarged due to presence of a 2.2 cm corpus luteum. The left ovary is 3.7 x 1.2 x 3.3 cm. Normal-sized follicles are present. No adnexal masses. FREE FLUID: Small amount of simple appearing free fluid is present in the posterior cul-de-sac. US/US pelvic and transvaginal IMPRESSION: * No acute sonographic abnormalities in the pelvis. * Large left-sided intramural leiomyoma measures up to 6.2 cm.
[2022-02-15 13:38] VITALS: BP 152/88; PULSE 110; RESP 16; TEMP 37.6; O2SAT 99; BMI 24.5
--- NOTE | 2022-02-15 13:39 | ED_ITS ---
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 Patient tells me she was seen in the hospital for this, placed on antibiotics but despite this pain has persisted. Patient is also on now reporting diffuse myalgias, substernal nonradiating intermittent chest pain and some shortness of breath when patient is very uncomfortable. Patient denies headache, vision changes, dizziness. <HUMERA Nettles Last Filed: 02/16/22 00:42> Related Data Home Medications: Previous Rx's Medication Instructions Recorded azithromycin 250 mg tablet See Rx Instructions PO .COMPLEX #6 12/26/21 tabs iukamlvjfy-hklssztofjoyz-hydebskr 1 cap PO Q4-6H PRN headache #14 12/26/21 50 mg-300 mg-40 mg capsule caps (Fioricet) cephalexin 500 mg capsule 500 mg PO Q6H 7 days #28 caps 01/18/22 <HUMERA Parada Last Filed: 02/15/22 13:47> Allergies/Adverse Reactions: Allergies Allergy/AdvReac Type Severity Reaction Status Date / Time No Known Allergies Allergy Verified 11/13/22 14:34 <HUMERA Parada - Last Filed: 02/15/22 13:47> Review of Systems Review of Systems Constitutional : No Weight loss, + Fever, + Chills, + Fatigue, + Malaise ENT/Mouth : No sore throat, No Rhinorrhea Eyes: No Eye Pain, No Swelling, No Redness Cardiovascular : + Chest Pain, + SOB, No Dyspnea on Exertion, No Orthopnea, No Edema, No Palpitations Respiratory : No Cough, No Sputum, No Wheezing Gastrointestinal : No Nausea, No Vomiting, No Diarrhea, No Constipation, + abdominal Pain, No Hematochezia, No Melena Genitourinary : + Dysuria, + Urinary Frequency, No Hematuria, Musculoskeletal : No joint pain, + Myalgias, No Joint Swelling Skin : No Skin Lesions, No rash Neuro : No Weakness, No Numbness, No Dizziness, No Headache Psych : No Anxiety/Panic, No Depression All other systems reviewed and are negative <HUMERA Nettles - Last Filed: 02/16/22 00:42> Yes all other systems are reviewed and are negative <HUMERA Nettles - Last Filed: 02/16/22 00:42> [facility] Past Medical History Attestation statement: The following information was validated with the patient. <HUMERA Nettles - Last Filed: 02/16/22 00:42> Source: old records reviewed and nursing notes reviewed <HUMERA Nettles - Last Filed: 02/16/22 00:42> Social History Social History: Social History Alcohol intake: never Smoked in Last 30 Days: No Use of substances other than those prescribed or required for medical reasons: No Advance Directives: No Advance Directives Information Provided: No Patient : No <HUMERA Parada Last Filed: 02/15/22 13:47> Physical Exam ED Vital Signs: Vital Signs - 24 hr 02/15/22 13:38 02/15/22 21:25 02/15/22 23:20 Temperature 99.6 F 100.0 F 99.3 F Pulse Rate 110 H 91 96 Respiratory Rate 16 18 17 Blood Pressure 152/88 H 114/64 101/62 Pulse Oximetry 99 98 96 Oxygen Delivery Method Room Air Room Air Room Air BMI result Body Mass Index 24.5 <HUMERA Parada - Last Filed: 02/15/22 13:47> Vital Signs - 24 hr 02/15/22 13:38 02/15/22 21:25 02/15/22 23:20 Temperature 99.6 F 100.0 F 99.3 F Pulse Rate 110 H 91 96 Respiratory Rate 16 18 17 Blood Pressure 152/88 H 114/64 101/62 Pulse Oximetry 99 98 96 Oxygen Delivery Method Room Air Room Air Room Air BMI result Body Mass Index 24.5 Patient with low-grade fever and tachycardia. <HUMERA Nettles - Last Filed: 02/16/22 00:42> Appearance: Alert.? Oriented X3.? No acute distress.? Head: Normocephalic, atraumatic, no step-offs or deformities Eyes: Pupils equal, round and reactive to light.? CVS: Normal heart rate and rhythm.? Pulses normal.? Respiratory: No respiratory distress.? Breath sounds normal.? Abdomen: Soft and diffusely tender abdomen. Normal BS? Skin: Skin warm and dry.? Normal skin color.? Normal skin turgor.? Extremities: No lower extremity edema.? No calf ttp. 5/5 strength to bilateral upper and lower extremities Back: No midline tenderness, no C-spine tenderness, full range of motion, bilateral CVA tenderness worse on the left. Neuro: Oriented X 3.? No motor deficit.? No sensory deficit. CN 2-12 intact <HUMERA Nettles - Last Filed: 02/16/22 00:42> Course Course Course Narrative: RME--41-year-old female with no significant past medical history presenting to the ED complaining of continued abdominal pain, odorous urine, headache, fatigue, chills x few weeks. Patient is seen and treated in the ED on 01/18 for similar symptoms diagnosed with UTI, enteritis, and uterine mass suggestive of fibroid. Reports symptoms are unchanged since prior, just persistent. Has been unable to get an appointment OBGYN. Patient was treated with Keflex Patient with low-grade fever 99, tachycardic, appears uncomfortable in triage, abdomen soft diffusely tender Labs, UA, repeat ultrasound, IVF ordered in triage <HUMERA Parada Last Filed: 02/15/22 13:47> Reevaluation(s) Reevaluation #1: CBC with strikingly elevated leukocytosis 19.8, a normocytic anemia is noted. Chemistry with no acute electrolyte abnormalities requiring intervention. Normal lactic. UA grossly infected I do suspect pyelonephritis on this patient therefore levofloxacin was ordered. Patient's negative. COVID and influenza negative. Ultrasound of pelvic and transvaginal with no acute sonographic abnormalities in the pelvis. 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 Chest x-ray with no acute intrathoracic disease. CT of the abdomen and pelvis with acute left-sided bacterial nephritis with striated left nephrogram. Incidental note of hepatomegaly with a 2.4 cm hypoattenuating mass in the right lobe of the liver. Enlarged uterine fibroids noted. Possible collapsed right ovarian cyst. Plan at this time is hospital admission for further intervention and treatment. <HUMERA Nettles - Last Filed: 02/16/22 00:42> Time: 00:41 <HUMERA Nettles - Last Filed: 02/16/22 00:42> Medical Decision Making Medical Decision Making [facility] Narrative: [id number] 41-year-old female presents with fatigue, malaise, dysuria, dark colored urine, foul smelling urine, bilateral flank pain, abdominal pain, chest pain, subjective fevers and chills, shortness of breath worsening x3 days. History and physical exam with CVA tenderness bilaterally worse on the left. Diffusely tender abdomen with normoactive bowel sounds. Breath sounds clear. Regular rate and rhythm. Vital signs stable. Patient appears uncomfortable. Concerns for pyelonephritis versus UTI verses cystitis versus a obstructing uropathy versus kidney stone. Most likely pyelonephritis. I do not suspect acute abdomen, ACS, PE, pneumonia. Plan labs, imaging, urine, pain meds, fluids <HUMERA Nettles Last Filed: 02/16/22 00:42> Differential Diagnosis Differential Diagnoses: The differential diagnosis associated with the presentation includes <HUMERA Nettlse Last Filed: 02/16/22 00:42> Concerns for pyelonephritis versus UTI verses cystitis versus a obstructing uropathy versus kidney stone. Most likely pyelonephritis. I do not suspect acute abdomen, ACS, PE, pneumonia. <HUMERA Nettles - Last Filed: 02/16/22 00:42> Admission/Observation Consideration of admission/observation: Escalation of care including admission/observation considered <HUMERA Nettles - Last Filed: 02/16/22 00:42> Suspected hospital admission <HUMERA Nettles - Last Filed: 02/16/22 00:42> Consult Healthcare Provider Management of the patient was discussed with: Hospitalist <HUMERA Nettles - Last Filed: 02/16/22 00:42> Lab Data MDM Lab Attestation statement: I reviewed the patient's lab results. <HUMERA Nettles - Last Filed: 02/16/22 00:42> Result Diagrams: : 02/15/22 14:20 02/15/22 14:20 <HUMERA Parada - Last Filed: 02/15/22 13:47> Labs: Lab Results 02/15/22 02/15/22 02/15/22 Range/Units 14:20 14:20 14:20 WBC 19.8 H (4.8-10.8) X10*3/uL RBC 4.13 L (4.20-5.50) X10*6/uL Hgb 11.8 L (12.0-16.0) g/dl Hct 35.7 L (37.0-47.0) % MCV 86.4 (80.0-98.0) fL MCH 28.6 (27.0-33.0) pg MCHC 33.1 (31.0-35.0) g/dl RDW 12.8 (11.0-16.0) % Plt Count 185 (160-400) X10*3/uL MPV 9.3 L (9.4-12.3) fL Immature Gran % (Auto) 1.9 H (0.0-0.4) % Neut % (Auto) 86.3 H (45-73) % Lymph % (Auto) 5.8 L (20-40) % [place] % (Auto) 5.5 (2-11) % Eos % (Auto) 0.1 (0-4) % Baso % (Auto) 0.4 (0-2) % Lymph # (Auto) 1.2 (1.2-4.9) X10*3/uL [place] # (Auto) 1.1 (0.1-1.2) X10*3/uL Eos # (Auto) 0.0 (0.0-0.4) X10*3/uL Baso # (Auto) 0.1 (0.0-0.2) X10*3/uL Abs Immat Gran (auto) 0.38 H (0.00-0.03) X10*3/uL Absolute Neuts (auto) 17.1 H (2.0-8.3) x10*3/uL Absolute Nucleated RBC 0.000 (0.0-0.012) X10*3/uL Nucleated RBC % (auto) 0.0 (0.0-0.2) /100WBC Sodium 139 (135-145) mmol/L Potassium 3.3 (3.3-5.1) mmol/L Chloride 105 (96-108) mmol/L Carbon Dioxide 25 (22-29) mmol/L Anion Gap 12 (12-20) BUN 13 (9-16) mg/dL Creatinine 0.71 (0.5-1.4) mg/dL Estim Creat Clear Calc 95.1 Estimated GFR > 60 Random Glucose 83 (60-115) mg/dL Lactic Acid (0.5-2.0) mmol/L Calcium 8.7 (8.4-10.2) mg/dL Magnesium 2.0 (1.6-2.6) mg/dL Total Bilirubin 0.6 (0.0-1.0) mg/dL Direct Bilirubin 0.3 (0.0-0.5) mg/dL AST 21 (5-31) U/L ALT 38 H (0-31) U/L Alkaline Phosphatase 212 H (39-117) U/L Total Protein 6.0 L (6.5-8.0) g/dL Albumin 3.2 L (3.5-5.0) g/dL Lipase 13 (8-78) U/L Urine Color Urine Appearance Urine pH (5.0-9.0) Ur Specific [place] (1.005-1.025) Urine Protein (Neg-Trace) mg/dL Urine Glucose (UA) (Negative) mg/dL Urine Ketones (Negative) mg/dL Urine Blood (Negative) Urine Nitrite (Negative) Ur Leukocyte Esterase (Negative) Urine RBC (0-2) /HPF Urine WBC (0-5) /HPF Ur Squamous Epith Cells (0-2) /HPF Urine Bacteria (None Seen) Hyaline Casts (0-2) /LPF Urine Test (NEGATIVE) COVID-19 (SHUN) (Negative) COVID-19 Clin Com Influenza Type A (KEVEN) (Negative) Influenza Type A (PCR) NEGATIVE (Negative) Influenza Type B (KEVEN) (Negative) Influenza Type B (PCR) NEGATIVE (Negative) Influenza A & B Note RSV RNA Qual (PCR) NEGATIVE (Negative) SARS-CoV-2 RNA (RT-PCR) NEGATIVE (Negative) 02/15/22 02/15/22 02/15/22 Range/Units 14:20 14:26 14:26 WBC (4.8-10.8) X10*3/uL RBC (4.20-5.50) X10*6/uL Hgb (12.0-16.0) g/dl Hct (37.0-47.0) % MCV (80.0-98.0) fL MCH (27.0-33.0) pg MCHC (31.0-35.0) g/dl RDW (11.0-16.0) % Plt Count (160-400) X10*3/uL MPV (9.4-12.3) fL Immature Gran % (Auto) (0.0-0.4) % Neut % (Auto) (45-73) % Lymph % (Auto) (20-40) % [place] % (Auto) (2-11) % Eos % (Auto) (0-4) % Baso % (Auto) (0-2) % Lymph # (Auto) (1.2-4.9) X10*3/uL [place] # (Auto) (0.1-1.2) X10*3/uL Eos # (Auto) (0.0-0.4) X10*3/uL Baso # (Auto) (0.0-0.2) X10*3/uL Abs Immat Gran (auto) (0.00-0.03) X10*3/uL Absolute Neuts (auto) (2.0-8.3) x10*3/uL Absolute Nucleated RBC (0.0-0.012) X10*3/uL Nucleated RBC % (auto) (0.0-0.2) /100WBC Sodium (135-145) mmol/L Potassium (3.3-5.1) mmol/L Chloride (96-108) mmol/L Carbon Dioxide (22-29) mmol/L Anion Gap (12-20) BUN (9-16) mg/dL Creatinine (0.5-1.4) mg/dL Estim Creat Clear Calc Estimated GFR Random Glucose (60-115) mg/dL Lactic Acid 1.1 (0.5-2.0) mmol/L Calcium (8.4-10.2) mg/dL Magnesium (1.6-2.6) mg/dL Total Bilirubin (0.0-1.0) mg/dL Direct Bilirubin (0.0-0.5) mg/dL AST (5-31) U/L ALT (0-31) U/L Alkaline Phosphatase (39-117) U/L Total Protein (6.5-8.0) g/dL Albumin (3.5-5.0) g/dL Lipase (8-78) U/L Urine Color Yellow Urine Appearance Cloudy Urine pH 6.0 (5.0-9.0) Ur Specific [place] 1.020 (1.005-1.025) Urine Protein 100 (2+) H (Neg-Trace) mg/dL Urine Glucose (UA) Negative (Negative) mg/dL Urine Ketones 15 (Negative) mg/dL Urine Blood Moderate (2+) H (Negative) Urine Nitrite Positive H (Negative) Ur Leukocyte Esterase Moderate (2+) H (Negative) Urine RBC >20 H (0-2) /HPF Urine WBC >50 H (0-5) /HPF Ur Squamous Epith Cells 3-5 (0-2) /HPF Urine Bacteria 4+ (None Seen) Hyaline Casts 0-2 (0-2) /LPF Urine Test NEGATIVE (NEGATIVE) COVID-19 (SHUN) (Negative) COVID-19 Clin Com Influenza Type A (KEVEN) (Negative) Influenza Type A (PCR) (Negative) Influenza Type B (KEVEN) (Negative) Influenza Type B (PCR) (Negative) Influenza A & B Note RSV RNA Qual (PCR) (Negative) SARS-CoV-2 RNA (RT-PCR) (Negative) 02/15/22 02/15/22 Range/Units 23:17 23:17 WBC (4.8-10.8) X10*3/uL RBC (4.20-5.50) X10*6/uL Hgb (12.0-16.0) g/dl Hct (37.0-47.0) % MCV (80.0-98.0) fL MCH (27.0-33.0) pg MCHC (31.0-35.0) g/dl RDW (11.0-16.0) % Plt Count (160-400) X10*3/uL MPV (9.4-12.3) fL Immature Gran % (Auto) (0.0-0.4) % Neut % (Auto) (45-73) % Lymph % (Auto) (20-40) % [place] % (Auto) (2-11) % Eos % (Auto) (0-4) % Baso % (Auto) (0-2) % Lymph # (Auto) (1.2-4.9) X10*3/uL [place] # (Auto) (0.1-1.2) X10*3/uL Eos # (Auto) (0.0-0.4) X10*3/uL Baso # (Auto) (0.0-0.2) X10*3/uL Abs Immat Gran (auto) (0.00-0.03) X10*3/uL Absolute Neuts (auto) (2.0-8.3) x10*3/uL Absolute Nucleated RBC (0.0-0.012) X10*3/uL Nucleated RBC % (auto) (0.0-0.2) /100WBC Sodium (135-145) mmol/L Potassium (3.3-5.1) mmol/L Chloride (96-108) mmol/L Carbon Dioxide (22-29) mmol/L Anion Gap (12-20) BUN (9-16) mg/dL Creatinine (0.5-1.4) mg/dL Estim Creat Clear Calc Estimated GFR Random Glucose (60-115) mg/dL Lactic Acid (0.5-2.0) mmol/L Calcium (8.4-10.2) mg/dL Magnesium (1.6-2.6) mg/dL Total Bilirubin (0.0-1.0) mg/dL Direct Bilirubin (0.0-0.5) mg/dL AST (5-31) U/L ALT (0-31) U/L Alkaline Phosphatase (39-117) U/L Total Protein (6.5-8.0) g/dL Albumin (3.5-5.0) g/dL Lipase (8-78) U/L Urine Color Urine Appearance Urine pH (5.0-9.0) Ur Specific [place] (1.005-1.025) Urine Protein (Neg-Trace) mg/dL Urine Glucose (UA) (Negative) mg/dL Urine Ketones (Negative) mg/dL Urine Blood (Negative) Urine Nitrite (Negative) Ur Leukocyte Esterase (Negative) Urine RBC (0-2) /HPF Urine WBC (0-5) /HPF Ur Squamous Epith Cells (0-2) /HPF Urine Bacteria (None Seen) Hyaline Casts (0-2) /LPF Urine Test (NEGATIVE) COVID-19 (SHUN) Negative (Negative) COVID-19 Clin Com See Note Influenza Type A (KEVEN) Negative (Negative) Influenza Type A (PCR) (Negative) Influenza Type B (KEVEN) Negative (Negative) Influenza Type B (PCR) (Negative) Influenza A & B Note See Note RSV RNA Qual (PCR) (Negative) SARS-CoV-2 RNA (RT-PCR) (Negative) <HUMERA Parada - Last Filed: 02/15/22 13:47> Lab Results 02/15/22 02/15/22 02/15/22 Range/Units 14:20 14:20 14:20 WBC 19.8 H (4.8-10.8) X10*3/uL RBC 4.13 L (4.20-5.50) X10*6/uL Hgb 11.8 L (12.0-16.0) g/dl Hct 35.7 L (37.0-47.0) % MCV 86.4 (80.0-98.0) fL MCH 28.6 (27.0-33.0) pg MCHC 33.1 (31.0-35.0) g/dl RDW 12.8 (11.0-16.0) % Plt Count 185 (160-400) X10*3/uL MPV 9.3 L (9.4-12.3) fL Immature Gran % (Auto) 1.9 H (0.0-0.4) % Neut % (Auto) 86.3 H (45-73) % Lymph % (Auto) 5.8 L (20-40) % [place] % (Auto) 5.5 (2-11) % Eos % (Auto) 0.1 (0-4) % Baso % (Auto) 0.4 (0-2) % Lymph # (Auto) 1.2 (1.2-4.9) X10*3/uL [place] # (Auto) 1.1 (0.1-1.2) X10*3/uL Eos # (Auto) 0.0 (0.0-0.4) X10*3/uL Baso # (Auto) 0.1 (0.0-0.2) X10*3/uL Abs Immat Gran (auto) 0.38 H (0.00-0.03) X10*3/uL Absolute Neuts (auto) 17.1 H (2.0-8.3) x10*3/uL Absolute Nucleated RBC 0.000 (0.0-0.012) X10*3/uL Nucleated RBC % (auto) 0.0 (0.0-0.2) /100WBC Sodium 139 (135-145) mmol/L Potassium 3.3 (3.3-5.1) mmol/L Chloride 105 (96-108) mmol/L Carbon Dioxide 25 (22-29) mmol/L Anion Gap 12 (12-20) BUN 13 (9-16) mg/dL Creatinine 0.71 (0.5-1.4) mg/dL Estim Creat Clear Calc 95.1 Estimated GFR > 60 Random Glucose 83 (60-115) mg/dL Lactic Acid (0.5-2.0) mmol/L Calcium 8.7 (8.4-10.2) mg/dL Magnesium 2.0 (1.6-2.6) mg/dL Total Bilirubin 0.6 (0.0-1.0) mg/dL Direct Bilirubin 0.3 (0.0-0.5) mg/dL AST 21 (5-31) U/L ALT 38 H (0-31) U/L Alkaline Phosphatase 212 H (39-117) U/L Total Protein 6.0 L (6.5-8.0) g/dL Albumin 3.2 L (3.5-5.0) g/dL Lipase 13 (8-78) U/L Urine Color Urine Appearance Urine pH (5.0-9.0) Ur Specific [place] (1.005-1.025) Urine Protein (Neg-Trace) mg/dL Urine Glucose (UA) (Negative) mg/dL Urine Ketones (Negative) mg/dL Urine Blood (Negative) Urine Nitrite (Negative) Ur Leukocyte Esterase (Negative) Urine RBC (0-2) /HPF Urine WBC (0-5) /HPF Ur Squamous Epith Cells (0-2) /HPF Urine Bacteria (None Seen) Hyaline Casts (0-2) /LPF Urine Test (NEGATIVE) COVID-19 (SHUN) (Negative) COVID-19 Clin Com Influenza Type A (KEVEN) (Negative) Influenza Type A (PCR) NEGATIVE (Negative) Influenza Type B (KEVEN) (Negative) Influenza Type B (PCR) NEGATIVE (Negative) Influenza A & B Note RSV RNA Qual (PCR) NEGATIVE (Negative) SARS-CoV-2 RNA (RT-PCR) NEGATIVE (Negative) 02/15/22 02/15/22 02/15/22 Range/Units 14:20 14:26 14:26 WBC (4.8-10.8) X10*3/uL RBC (4.20-5.50) X10*6/uL Hgb (12.0-16.0) g/dl Hct (37.0-47.0) % MCV (80.0-98.0) fL MCH (27.0-33.0) pg MCHC (31.0-35.0) g/dl RDW (11.0-16.0) % Plt Count (160-400) X10*3/uL MPV (9.4-12.3) fL Immature Gran % (Auto) (0.0-0.4) % Neut % (Auto) (45-73) % Lymph % (Auto) (20-40) % [place] % (Auto) (2-11) % Eos % (Auto) (0-4) % Baso % (Auto) (0-2) % Lymph # (Auto) (1.2-4.9) X10*3/uL [place] # (Auto) (0.1-1.2) X10*3/uL Eos # (Auto) (0.0-0.4) X10*3/uL Baso # (Auto) (0.0-0.2) X10*3/uL Abs Immat Gran (auto) (0.00-0.03) X10*3/uL Absolute Neuts (auto) (2.0-8.3) x10*3/uL Absolute Nucleated RBC (0.0-0.012) X10*3/uL Nucleated RBC % (auto) (0.0-0.2) /100WBC Sodium (135-145) mmol/L Potassium (3.3-5.1) mmol/L Chloride (96-108) mmol/L Carbon Dioxide (22-29) mmol/L Anion Gap (12-20) BUN (9-16) mg/dL Creatinine (0.5-1.4) mg/dL Estim Creat Clear Calc Estimated GFR Random Glucose (60-115) mg/dL Lactic Acid 1.1 (0.5-2.0) mmol/L Calcium (8.4-10.2) mg/dL Magnesium (1.6-2.6) mg/dL Total Bilirubin (0.0-1.0) mg/dL Direct Bilirubin (0.0-0.5) mg/dL AST (5-31) U/L ALT (0-31) U/L Alkaline Phosphatase (39-117) U/L Total Protein (6.5-8.0) g/dL Albumin (3.5-5.0) g/dL Lipase (8-78) U/L Urine Color Yellow Urine Appearance Cloudy Urine pH 6.0 (5.0-9.0) Ur Specific [place] 1.020 (1.005-1.025) Urine Protein 100 (2+) H (Neg-Trace) mg/dL Urine Glucose (UA) Negative (Negative) mg/dL Urine Ketones 15 (Negative) mg/dL Urine Blood Moderate (2+) H (Negative) Urine Nitrite Positive H (Negative) Ur Leukocyte Esterase Moderate (2+) H (Negative) Urine RBC >20 H (0-2) /HPF Urine WBC >50 H (0-5) /HPF Ur Squamous Epith Cells 3-5 (0-2) /HPF Urine Bacteria 4+ (None Seen) Hyaline Casts 0-2 (0-2) /LPF Urine Test NEGATIVE (NEGATIVE) COVID-19 (SHUN) (Negative) COVID-19 Clin Com Influenza Type A (KEVEN) (Negative) Influenza Type A (PCR) (Negative) Influenza Type B (KEVEN) (Negative) Influenza Type B (PCR) (Negative) Influenza A & B Note RSV RNA Qual (PCR) (Negative) SARS-CoV-2 RNA (RT-PCR) (Negative) 02/15/22 02/15/22 Range/Units 23:17 23:17 WBC (4.8-10.8) X10*3/uL RBC (4.20-5.50) X10*6/uL Hgb (12.0-16.0) g/dl Hct (37.0-47.0) % MCV (80.0-98.0) fL MCH (27.0-33.0) pg MCHC (31.0-35.0) g/dl RDW (11.0-16.0) % Plt Count (160-400) X10*3/uL MPV (9.4-12.3) fL Immature Gran % (Auto) (0.0-0.4) % Neut % (Auto) (45-73) % Lymph % (Auto) (20-40) % [place] % (Auto) (2-11) % Eos % (Auto) (0-4) % Baso % (Auto) (0-2) % Lymph # (Auto) (1.2-4.9) X10*3/uL [place] # (Auto) (0.1-1.2) X10*3/uL Eos # (Auto) (0.0-0.4) X10*3/uL Baso # (Auto) (0.0-0.2) X10*3/uL Abs Immat Gran (auto) (0.00-0.03) X10*3/uL Absolute Neuts (auto) (2.0-8.3) x10*3/uL Absolute Nucleated RBC (0.0-0.012) X10*3/uL Nucleated RBC % (auto) (0.0-0.2) /100WBC Sodium (135-145) mmol/L Potassium (3.3-5.1) mmol/L Chloride (96-108) mmol/L Carbon Dioxide (22-29) mmol/L Anion Gap (12-20) BUN (9-16) mg/dL Creatinine (0.5-1.4) mg/dL Estim Creat Clear Calc Estimated GFR Random Glucose (60-115) mg/dL Lactic Acid (0.5-2.0) mmol/L Calcium (8.4-10.2) mg/dL Magnesium (1.6-2.6) mg/dL Total Bilirubin (0.0-1.0) mg/dL Direct Bilirubin (0.0-0.5) mg/dL AST (5-31) U/L ALT (0-31) U/L Alkaline Phosphatase (39-117) U/L Total Protein (6.5-8.0) g/dL Albumin (3.5-5.0) g/dL Lipase (8-78) U/L Urine Color Urine Appearance Urine pH (5.0-9.0) Ur Specific [place] (1.005-1.025) Urine Protein (Neg-Trace) mg/dL Urine Glucose (UA) (Negative) mg/dL Urine Ketones (Negative) mg/dL Urine Blood (Negative) Urine Nitrite (Negative) Ur Leukocyte Esterase (Negative) Urine RBC (0-2) /HPF Urine WBC (0-5) /HPF Ur Squamous Epith Cells (0-2) /HPF Urine Bacteria (None Seen) Hyaline Casts (0-2) /LPF Urine Test (NEGATIVE) COVID-19 (SHUN) Negative (Negative) COVID-19 Clin Com See Note Influenza Type A (KEVEN) Negative (Negative) Influenza Type A (PCR) (Negative) Influenza Type B (KEVEN) Negative (Negative) Influenza Type B (PCR) (Negative) Influenza A & B Note See Note RSV RNA Qual (PCR) (Negative) SARS-CoV-2 RNA (RT-PCR) (Negative) <HUMERA Nettles - Last Filed: 02/16/22 00:42> Independent Interpretation I performed an independent interpretation of an: EKG, Plain X-Ray and CT Scan <HUMERA Nettles - Last Filed: 02/16/22 00:42> Radiology Impression Discussion of test interpretation with radiology: I have reviewed the radiologist's reading. <HUMERA Nettles - Last Filed: 02/16/22 00:42> Independent Historian Clinical information obtained from an independent historian. History obtained from or confirmed by: Other (self ) <HUMERA Nettles - Last Filed: 02/16/22 00:42> External Record Review External record reviewed: Inpatient record, Office record, Outpatient record and Prior outpatient radiology <HUMERA Nettles - Last Filed: 02/16/22 00:42> Core Measures AMI core measures followed: Yes <HUMERA Nettles - Last Filed: 02/16/22 00:42> Measure exclusions: not indicated <HUMERA Nettles - Last Filed: 02/16/22 00:42> Medications Administered Discontinued Medications Generic Name Dose Route Start Last Admin Trade Name Freq PRN Reason Stop Dose Admin Sodium Chloride 1,000 mls @ 999 mls/hr 02/15/22 13:45 02/15/22 23:57 Ns IV 02/15/22 14:45 Infused .Q1H1M CRICKET Infusion Levofloxacin 750 mg in 150 mls @ 100 mls/hr 02/15/22 22:33 02/15/22 23:57 Levaquin IV 02/16/22 00:02 100 mls/hr ONCE ONE Administration Iohexol 100 ml 02/15/22 22:53 02/15/22 22:54 Iohexol 350 Mg/Ml 100 Ml Infus..Btl IV 02/15/22 22:54 85 ml ONCE ONE Administration Ondansetron HCl 4 mg 02/15/22 13:39 02/15/22 21:44 Ondansetron Hcl 4 Mg/2 Ml Vial IVPUSH 02/15/22 13:40 4 mg ONCE ONE Administration <HUMERA Parada - Last Filed: 02/15/22 13:47> Medications Administered Discontinued Medications Generic Name Dose Route Start Last Admin Trade Name Freq PRN Reason Stop Dose Admin Sodium Chloride 1,000 mls @ 999 mls/hr 02/15/22 13:45 02/15/22 23:57 Ns IV 02/15/22 14:45 Infused .Q1H1M CRICKET Infusion Levofloxacin 750 mg in 150 mls @ 100 mls/hr 02/15/22 22:33 02/15/22 23:57 Levaquin IV 02/16/22 00:02 100 mls/hr ONCE ONE Administration Iohexol 100 ml 02/15/22 22:53 02/15/22 22:54 Iohexol 350 Mg/Ml 100 Ml Infus..Btl IV 02/15/22 22:54 85 ml ONCE ONE Administration Ondansetron HCl 4 mg 02/15/22 13:39 02/15/22 21:44 Ondansetron Hcl 4 Mg/2 Ml Vial IVPUSH 02/15/22 13:40 4 mg ONCE ONE Administration <HUMERA Nettles Last Filed: 02/16/22 00:42> Critical Care Time Critical Care Time Critical Care Time: No <HUMERA Nettles Last Filed: 02/16/22 00:42> Discharge Plan Discharge Clinical Impression: Pyelonephritis, Chest pain, Flank pain <HUMERA Parada Last Filed: 02/15/22 13:47> Patient Disposition: Still a Patient <HUMERA Parada Last Filed: 02/15/22 13:47> Prescriptions: No Action azithromycin 250 mg tablet See Rx Instructions .ROUTE .COMPLEX Qty: 6 0RF Rx Instructions: take 500 mg today (day 1), then 250 mg for 4 days (days 2-5) [id number] [Fioricet] 50-300-40 mg capsule 1 cap PO Q4-6H PRN (Reason: headache) Qty: 14 0RF cephalexin 500 mg capsule 500 mg PO Q6H 7 Days Qty: 28 0RF <HUMERA Parada Last Filed: 02/15/22 13:47>
[2022-02-15 14:27] LABS: MANUAL DIFF FLAG NO
[2022-02-15 14:29] LABS: Basophils Absolute Auto 0.1 X10*3/uL (0.0-0.2); Basophils Percent Auto 0.4 % (0-2); Eosinophils Percent Auto 0.1 % (0-4); Hematocrit 35.7 % (37.0-47.0); Hemoglobin 11.8 g/dl (12.0-16.0); Imm Gran Abs Auto 0.38 X10*3/uL (0.00-0.03); Imm Gran Pct Auto 1.9 % (0.0-0.4); Lymphocytes Absolute Auto 1.2 X10*3/uL (1.2-4.9); Lymphocytes Percent Auto 5.8 % (20-40); Mean Corpuscular HGB Conc 33.1 g/dl (31.0-35.0); Mean Corpuscular Hemoglobin 28.6 pg (27.0-33.0); Mean Corpuscular Volume 86.4 fL (80.0-98.0); Mean Platelet Volume 9.3 fL (9.4-12.3); Monocytes Absolute Auto 1.1 X10*3/uL (0.1-1.2); Monocytes Percent Auto 5.5 % (2-11); Neutrophils Absolute Auto 17.1 x10*3/uL (2.0-8.3); Neutrophils Percent Auto 86.3 % (45-73); Platelet Count 185 X10*3/uL (160-400); Red Blood Count 4.13 X10*6/uL (4.20-5.50); Red Cell Distribution Width 12.8 % (11.0-16.0); White Blood Count 19.8 X10*3/uL (4.8-10.8)
[2022-02-15 14:44] LABS: Appearance Urine Cloudy; Color Urine Yellow; Glucose Urine UA Negative (Negative); Leukocyte Esterase Urine Moderate (2+) (Negative); Nitrite Urine Positive (Negative); UMIC TRIGGER UACC YES; Urine Blood Moderate (2+) (Negative); Urine Ketones 15 mg/dL (Negative); Urine Protein 100 (2+) mg/dL (Neg-Trace)
[2022-02-15 14:47] LABS: UPreg QC Valid YES; Urine Pregnancy NEGATIVE (NEGATIVE)
[2022-02-15 14:50] LABS: Lactic Acid 1.1 mmol/L (0.5-2.0)
[2022-02-15 15:06] LABS: Alanine Aminotransferase 38 U/L (0-31); Albumin Level 3.2 g/dL (3.5-5.0); Alkaline Phosphatase 212 U/L (39-117); Anion Gap 12 (12-20); Aspartate Amino Transferase 21 U/L (5-31); Bilirubin Direct 0.3 mg/dL (0.0-0.5); Bilirubin Total 0.6 mg/dL (0.0-1.0); Blood Urea Nitrogen 13 mg/dL (9-16); Calcium 8.7 mg/dL (8.4-10.2); Carbon Dioxide 25 mmol/L (22-29); Chloride 105 mmol/L (96-108); Creatinine Clr Calc Pharmacy 95.1; Estimated Glomerular Filt Rate > 60; Glucose Random 83 mg/dL (60-115); Lipase 13 U/L (8-78); Potassium 3.3 mmol/L (3.3-5.1); Sodium 139 mmol/L (135-145)
[2022-02-15 15:09] LABS: Influenza A PCR NEGATIVE (Negative); Influenza B PCR NEGATIVE (Negative); Resp Syncy Virus RNA Qual PCR NEGATIVE (Negative); SARS COV2 PCR INHOUSE NEGATIVE (Negative)
[2022-02-15 15:10] LABS: Bacteria Urine 4+ (None Seen); Hyaline Casts Urine 0-2 /LPF (0-2); RBC Urine >20 /HPF (0-2); UACC Culture Trigger YES; WBC Urine >50 /HPF (0-5)
[2022-02-15 21:25] VITALS: BP 114/64; PULSE 91; RESP 18; TEMP 37.8; O2SAT 98
[2022-02-15] MEDS: ondansetron HCL 4 MG/2 ML VIAL IVPUSH (21:44)
[2022-02-15] MEDS: 0.9 % Sodium Chloride 1,000 ML 999 ML IV (21:44)
--- NOTE | 2022-02-15 21:58 | PC.NURSE ---
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
[2022-02-15] MEDS: iohexoL 350 MG/ML 100 ML INFUS..BTL IV (22:54)
[2022-02-15 23:20] VITALS: BP 101/62; PULSE 96; RESP 17; TEMP 37.4; O2SAT 96
[2022-02-15 23:37] LABS: COVID-19 Test Negative (Negative); IDNOW Serial# 16C4AD1C
[2022-02-15 23:38] LABS: IDNOW Serial# BCCEAD1C; Influenza A Negative (Negative); Influenza B2 Negative (Negative)
[2022-02-15] MEDS: levoFLOXacin/D5W 750 MG/150 ML PIGGYBACK 100 MG IV (23:57)
--- NOTE | 2022-02-16 00:17 | P.HPHOSP_ITS ---
History of Present Illness Date of Service: 02/16/22 Chief Complaint: Abdominal pain This is a 41-year-old Greenlandic speaking female who presents to the emergency department for evaluation of left flank pain. Patient states it started 4 days prior to presentation, and has been associated with dysuria and intermittent hematuria. Patient states she tried Tylenol for the pain but it is constant and has been progressive over the last 4 days. She has history of UTI. No known pertinent past medical history and not on prescription medications. Also has associated fever, chills and generalized body aches. Patient denies chest discomfort, palpitations, shortness of breath, changes in bowel habits In the emergency department, urine suggestive of UTI and CT abdomen with left- sided nephritis. Review of Systems Constitutional: Constitutional: Reports chills and Reports fever(s) Cardiovascular: Cardiovascular: Reports no additional cardiovascular co mplaints Respiratory: Respiratory: Reports no additional respiratory complaints Gastrointestinal: Gastrointestinal: Reports abdominal pain Genitourinary: Genitourinary: Reports dysuria PMFSH Functional capacity: independent ambulation Pertinent family history: Mother with diabetes and sister with unspecified cancer Social History Alcohol intake: never Smoked in Last 30 Days: No Use of substances other than those prescribed or required for medical reasons: No Advance Directives: No Advance Directives Information Provided: No Patient : No Meds Allergies Allergy/AdvReac Type Severity Reaction Status Date / Time No Known Allergies Allergy Verified 12/26/21 14:34 Active Medications: Current Medications Pharmacy Consult (Consult Rx Perform Med Rec) 1 each MISCELLANE ONCE PRN PRN Reason: Consult order Physical Exam Vital Signs and Narrative: Vital Signs: Last Vital Signs Temp 99.3 F 02/15/22 23:20 Pulse 96 02/15/22 23:20 Resp 17 02/15/22 23:20 BP 101/62 02/15/22 23:20 Pulse Ox 96 02/15/22 23:20 O2 Del Method 02/15/22 23:20 BMI result Body Mass Index 24.5 Middle-aged female lying in bed in no distress Neck supple, no JVD Regular rate and rhythm, S1-S2 heard Regular breath sounds bilaterally, no wheezing or crackles appreciated Left-sided CVA tenderness present Patient is awake, alert and oriented to self, place, time and person ; no focal motor deficit Psych: Normal mood No pedal edema Results Labs CBC and Chem 7: 02/15/22 14:20 02/15/22 14:20 Labs: Laboratory Results - last 24 hr 02/15/22 02/15/22 02/15/22 14:20 14:20 14:20 MCV 86.4 MCH 28.6 MCHC 33.1 RDW 12.8 Plt Count 185 MPV 9.3 L Immature Gran % (Auto) 1.9 H Neut % (Auto) 86.3 H Lymph % (Auto) 5.8 L [place] % (Auto) 5.5 Eos % (Auto) 0.1 Baso % (Auto) 0.4 Lymph # (Auto) 1.2 [place] # (Auto) 1.1 Eos # (Auto) 0.0 Baso # (Auto) 0.1 Abs Immat Gran (auto) 0.38 H Absolute Neuts (auto) 17.1 H Absolute Nucleated RBC 0.000 Nucleated RBC % (auto) 0.0 Anion Gap 12 Estim Creat Clear Calc 95.1 Estimated GFR > 60 Random Glucose 83 Lactic Acid Calcium 8.7 Magnesium 2.0 Total Bilirubin 0.6 Direct Bilirubin 0.3 AST 21 ALT 38 H Alkaline Phosphatase 212 H Total Protein 6.0 L Albumin 3.2 L Lipase 13 Urine Color Urine Appearance Urine pH Ur Specific [place] Urine Protein Urine Glucose (UA) Urine Ketones Urine Blood Urine Nitrite Ur Leukocyte Esterase Urine RBC Urine WBC Ur Squamous Epith Cells Urine Bacteria Hyaline Casts Urine Test COVID-19 (SHUN) COVID-19 Clin Com Influenza Type A (KEVEN) Influenza Type A (PCR) NEGATIVE Influenza Type B (KEVEN) Influenza Type B (PCR) NEGATIVE Influenza A & B Note RSV RNA Qual (PCR) NEGATIVE SARS-CoV-2 RNA (RT-PCR) NEGATIVE 02/15/22 02/15/22 02/15/22 14:20 14:26 14:26 MCV MCH MCHC RDW Plt Count MPV Immature Gran % (Auto) Neut % (Auto) Lymph % (Auto) [place] % (Auto) Eos % (Auto) Baso % (Auto) Lymph # (Auto) [place] # (Auto) Eos # (Auto) Baso # (Auto) Abs Immat Gran (auto) Absolute Neuts (auto) Absolute Nucleated RBC Nucleated RBC % (auto) Anion Gap Estim Creat Clear Calc Estimated GFR Random Glucose Lactic Acid 1.1 Calcium Magnesium Total Bilirubin Direct Bilirubin AST ALT Alkaline Phosphatase Total Protein Albumin Lipase Urine Color Yellow Urine Appearance Cloudy Urine pH 6.0 Ur Specific [place] 1.020 Urine Protein 100 (2+) H Urine Glucose (UA) Negative Urine Ketones 15 Urine Blood Moderate (2+) H Urine Nitrite Positive H Ur Leukocyte Esterase Moderate (2+) H Urine RBC >20 H Urine WBC >50 H Ur Squamous Epith Cells 3-5 Urine Bacteria 4+ Hyaline Casts 0-2 Urine Test NEGATIVE COVID-19 (SHUN) COVID-19 Clin Com Influenza Type A (KEVEN) Influenza Type A (PCR) Influenza Type B (KEVEN) Influenza Type B (PCR) Influenza A & B Note RSV RNA Qual (PCR) SARS-CoV-2 RNA (RT-PCR) 02/15/22 02/15/22 23:17 23:17 MCV MCH MCHC RDW Plt Count MPV Immature Gran % (Auto) Neut % (Auto) Lymph % (Auto) [place] % (Auto) Eos % (Auto) Baso % (Auto) Lymph # (Auto) [place] # (Auto) Eos # (Auto) Baso # (Auto) Abs Immat Gran (auto) Absolute Neuts (auto) Absolute Nucleated RBC Nucleated RBC % (auto) Anion Gap Estim Creat Clear Calc Estimated GFR Random Glucose Lactic Acid Calcium Magnesium Total Bilirubin Direct Bilirubin AST ALT Alkaline Phosphatase Total Protein Albumin Lipase Urine Color Urine Appearance Urine pH Ur Specific [place] Urine Protein Urine Glucose (UA) Urine Ketones Urine Blood Urine Nitrite Ur Leukocyte Esterase Urine RBC Urine WBC Ur Squamous Epith Cells Urine Bacteria Hyaline Casts Urine Test COVID-19 (SHUN) Negative COVID-19 Clin Com See Note Influenza Type A (KEVEN) Negative Influenza Type A (PCR) Influenza Type B (KEVEN) Negative Influenza Type B (PCR) Influenza A & B Note See Note RSV RNA Qual (PCR) SARS-CoV-2 RNA (RT-PCR) Imaging Radiologist's Impressions: Impressions Pelvic/Transvag US 02/15/22 16:25 IMPRESSION: * No acute sonographic abnormalities in the pelvis. * Large left-sided intramural leiomyoma measures up to 6.2 cm. Chest X-Ray 02/15/22 22:38 IMPRESSION: No acute intrathoracic disease. Abdomen/Pelvis CT 02/15/22 22:56 IMPRESSION: 1. Acute left-sided bacterial nephritis with striated left nephrogram. 2. Incidental note made of mild hepatomegaly with a 2.4 cm hypoattenuating mass in the right lobe of the liver. Liver ultrasound is recommended for further evaluation. 3. Enlarged fibroid uterus. 4. Possible collapsed right ovarian cyst. Fleischner guidelines were followed. This critical result was discussed with HUMERA Nettles at 11:55 PM on the day of the examination and it was ascertained that the content and urgency of the report was understood at the time of direct communication. Assessment and Plan (1) Pyelonephritis: Status: Acute Plan This is a 41-year-old Greenlandic speaking female who presents to the emergency department for evaluation of left flank pain. #. Sepsis due to acute pyelonephritis (left-sided): Will admit patient and initiate IV Rocephin. No recent hospitalization and no risk of MDR. Patient resuscitated with IV crystalloids in the ER. Lactic acid and blood culture obtained. Follow urine cultures. #. Uterine leiomyoma on transvaginal ultrasound: Outpatient management #. 2.4 cm mass the right lobe of liver: Obtaining liver ultrasound DVT prophylaxis: Lovenox 40 mg daily Diet: Regular diet Full code Admit as inpatient and will require two night minimum hospital stay for IV antibiotics. Time Spent With Patient Time: Total time managing care of this patient today ____ minutes. Quality Stroke Does the patient have a stroke diagnosis?: No VTE Prior VTE?: No VTE Risk Level:: Medical - moderate - high VTE Device Contraindication: Treatment Not Indicated VTE Drug Contraindication: N/A - Med Ordered
--- NOTE | 2022-02-16 00:39 | ECG_ITS ---
Test Reason : CP,SOB Blood Pressure : / mmHG Vent. Rate : 099 BPM Atrial Rate : 099 BPM P-R Int : 118 ms QRS Dur : 102 ms QT Int : 340 ms P-R-T Axes : 063 043 032 degrees QTc Int : 436 ms Normal sinus rhythm Nonspecific ST abnormality Borderline ECG No previous ECGs available Referred By: Foster Gupta Electronically Signed By:KIRIT TRACEY
--- NOTE | 2022-02-16 00:42 | PC.NURSE ---
Spoke to pharmacy about meds not being verified. Told they have been very busy and are behind.
[2022-02-16] MEDS: Enoxaparin Sodium 40 MG/0.4 ML SYRINGE SUBCUT ×2 (01:06→19:55)
[2022-02-16] MEDS: Morphine Sulfate 4 MG/ML CARTRIDGE IVPUSH (01:07)
[2022-02-16] MEDS: 0.9 % Sodium Chloride 1,000 ML 999 ML IV ×2 (01:11)
[2022-02-16 01:32] VITALS: BP 105/56; PULSE 94; TEMP 37.2; O2SAT 94
[2022-02-16 01:41] LABS: Troponin-I High Sensitivity 10.7 ng/L (<3.5-17.0)
[2022-02-16] MEDS: Acetaminophen 325 MG TABLET 650 MG PO ×3 (02:20→15:28)
--- NOTE | 2022-02-16 02:52 | PC.NURSE ---
Pt sleeping, no apparent distress
[2022-02-16 06:49] LABS: MANUAL DIFF FLAG NO
[2022-02-16 06:55] LABS: Basophils Percent Auto 0.4 % (0-2); Eosinophils Percent Auto 0.1 % (0-4); Hematocrit 28.6 % (37.0-47.0); Hemoglobin 9.4 g/dl (12.0-16.0); Imm Gran Abs Auto 0.18 X10*3/uL (0.00-0.03); Imm Gran Pct Auto 1.6 % (0.0-0.4); Lymphocytes Absolute Auto 1.6 X10*3/uL (1.2-4.9); Lymphocytes Percent Auto 14.3 % (20-40); Mean Corpuscular HGB Conc 32.9 g/dl (31.0-35.0); Mean Corpuscular Hemoglobin 28.5 pg (27.0-33.0); Mean Corpuscular Volume 86.7 fL (80.0-98.0); Mean Platelet Volume 9.3 fL (9.4-12.3); Monocytes Absolute Auto 1.1 X10*3/uL (0.1-1.2); Monocytes Percent Auto 9.8 % (2-11); Neutrophils Absolute Auto 8.1 x10*3/uL (2.0-8.3); Neutrophils Percent Auto 73.8 % (45-73); Platelet Count 132 X10*3/uL (160-400); Red Cell Distribution Width 13.2 % (11.0-16.0)
[2022-02-16 07:30] LABS: Anion Gap 9 (12-20); Blood Urea Nitrogen 10 mg/dL (9-16); Carbon Dioxide 23 mmol/L (22-29); Chloride 109 mmol/L (96-108); Creatinine Clr Calc Pharmacy 107.2; Estimated Glomerular Filt Rate > 60; Glucose Random 80 mg/dL (60-115); Potassium 3.2 mmol/L (3.3-5.1); Sodium 138 mmol/L (135-145)
[2022-02-16 07:39] LABS: Calcium 7.2 mg/dL (8.4-10.2)
[2022-02-16] MEDS: 0.9 % Sodium Chloride Flush 3 ML SYRINGE IVFLUSH (07:52)
[2022-02-16] MEDS: cefTRIAXone sodium 1 GM in 0.9 % Sodium Chloride 50 ML IV (08:29)
[2022-02-16] MEDS: Potassium Chloride ER 20 MEQ TAB.ER.PRT 40 MEQ PO (08:30)
[2022-02-16 08:31] VITALS: BP 107/71; PULSE 91; RESP 16; TEMP 37.8; O2SAT 100
--- NOTE | 2022-02-16 08:39 | PHA.MEDREC ---
Pharmacy Consult ? Medication Reconciliation Pharmacy has completed the medication reconciliation. [facility] [employer] certified court/medical interpreter. Pt states she only takes pain meds, named tylenol and ibuprofen every 4 hours.
[2022-02-16 11:42] VITALS: BP 104/63; PULSE 65; RESP 16; TEMP 37; O2SAT 97
--- NOTE | 2022-02-16 12:31 | PC.NURSE ---
patient a&ox3, family at bedside, vss, call reynolds within reach, will continue to monitor
--- NOTE | 2022-02-16 14:35 | HO.PM.IMPN ---
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 Denies current fever, chills. No nausea Review of Systems Review of Systems: Yes all other systems are reviewed and are negative Constitutional Constitutional: Denies chills and Denies fever(s) Cardiovascular Cardiovascular: Denies chest pain, Denies palpitations and Denies dyspnea Respiratory Respiratory: Denies cough and Denies dyspnea Endocrine Endocrine: Denies palpitations Physical Exam Vital Signs: Vital Signs: Last Vital Signs Temp 98.6 F 02/16/22 11:42 Pulse 65 02/16/22 11:42 Resp 16 02/16/22 11:42 BP 104/63 02/16/22 11:42 Pulse Ox 97 02/16/22 11:42 O2 Del Method 02/16/22 11:42 BMI result Body Mass Index 24.5 Const: General: comfortable, alert and awake Nutritional Appearance: average body habitus Orientation/consciousness: patient oriented x3 Resp: Effort & Inspection: normal respiratory effort and able to speak in complete sentences Auscultation: clear to auscultation bilaterally Cardio: Rate: regular rate Heart sounds: S1 normal heart sound present and S2 normal heart sound present GI: Inspection: No distended Palpation (GI): Soft to palpation : General: Yes CVA tenderness on the left Back/Spine/Pelvis: Back: CVA tenderness Neuro: General: patient oriented x3 and CN's II-XI intact bilaterally Extrem: General: Yes no pedal edema Objective Data Active Medications Acetaminophen (Acetaminophen 325 Mg Tablet) 650 mg PO Q6H PRN PRN Reason: Pain, Mild (Pain Scale 1-3) Last Admin: 02/16/22 09:40 Dose: 650 mg Documented By: KATE Enoxaparin Sodium (Enoxaparin Sodium 40 Mg/0.4 Ml Syringe) 40 mg SUBCUT BEDTIME [facility] Last Admin: 02/16/22 01:06 Dose: 40 mg Documented By: ROSY Ceftriaxone Sodium 1 gm/ (Sodium Chloride) 50 mls @ 100 mls/hr IV Q24H [facility] Last Infusion: 02/16/22 09:02 Dose: 0 mls/hr Documented By: KATE Melatonin (Melatonin 3 Mg Tablet) 6 mg PO BEDTIME PRN PRN Reason: Insomnia Ondansetron HCl (Ondansetron Hcl 4 Mg/2 Ml Vial) 4 mg IVPUSH Q8H PRN PRN Reason: Nausea and Vomiting Pharmacy Consult (Consult Rx Perform Med Rec) 1 each MISCELLANE ONCE PRN PRN Reason: Consult order Sodium Chloride (0.9 % Sodium Chloride Flush 3 Ml Syringe) [facility] Admin: 02/16/22 07:52 Dose: 3 ml Documented By: KATE Labs CBC & Chem 7: 02/16/22 06:37 02/16/22 06:37 Labs: Laboratory Results - last 24 hr 02/15/22 02/15/22 02/15/22 14:20 14:20 14:20 MCV MCH MCHC RDW Plt Count MPV Immature Gran % (Auto) Neut % (Auto) Lymph % (Auto) [place] % (Auto) Eos % (Auto) Baso % (Auto) Lymph # (Auto) [place] # (Auto) Eos # (Auto) Baso # (Auto) Abs Immat Gran (auto) Absolute Neuts (auto) Absolute Nucleated RBC Nucleated RBC % (auto) Anion Gap 12 Estim Creat Clear Calc 95.1 Estimated GFR > 60 Random Glucose 83 Lactic Acid 1.1 Calcium 8.7 Magnesium 2.0 Total Bilirubin 0.6 Direct Bilirubin 0.3 AST 21 ALT 38 H Alkaline Phosphatase 212 H Troponin I High Sens Total Protein 6.0 L Albumin 3.2 L Lipase 13 Urine Color Urine Appearance Urine pH Ur Specific [place] Urine Protein Urine Glucose (UA) Urine Ketones Urine Blood Urine Nitrite Ur Leukocyte Esterase Urine RBC Urine WBC Ur Squamous Epith Cells Urine Bacteria Hyaline Casts Urine Test COVID-19 (SHUN) COVID-19 Clin Com Influenza Type A (KEVEN) Influenza Type A (PCR) NEGATIVE Influenza Type B (KEVEN) Influenza Type B (PCR) NEGATIVE Influenza A & B Note RSV RNA Qual (PCR) NEGATIVE SARS-CoV-2 RNA (RT-PCR) NEGATIVE 02/15/22 02/15/22 02/15/22 14:26 14:26 23:17 MCV MCH MCHC RDW Plt Count MPV Immature Gran % (Auto) Neut % (Auto) Lymph % (Auto) [place] % (Auto) Eos % (Auto) Baso % (Auto) Lymph # (Auto) [place] # (Auto) Eos # (Auto) Baso # (Auto) Abs Immat Gran (auto) Absolute Neuts (auto) Absolute Nucleated RBC Nucleated RBC % (auto) Anion Gap Estim Creat Clear Calc Estimated GFR Random Glucose Lactic Acid Calcium Magnesium Total Bilirubin Direct Bilirubin AST ALT Alkaline Phosphatase Troponin I High Sens Total Protein Albumin Lipase Urine Color Yellow Urine Appearance Cloudy Urine pH 6.0 Ur Specific [place] 1.020 Urine Protein 100 (2+) H Urine Glucose (UA) Negative Urine Ketones 15 Urine Blood Moderate (2+) H Urine Nitrite Positive H Ur Leukocyte Esterase Moderate (2+) H Urine RBC >20 H Urine WBC >50 H Ur Squamous Epith Cells 3-5 Urine Bacteria 4+ Hyaline Casts 0-2 Urine Test NEGATIVE COVID-19 (SHUN) Negative COVID-19 Clin Com See Note Influenza Type A (KEVEN) Influenza Type A (PCR) Influenza Type B (KEVEN) Influenza Type B (PCR) Influenza A & B Note RSV RNA Qual (PCR) SARS-CoV-2 RNA (RT-PCR) 02/15/22 02/16/22 02/16/22 23:17 01:07 06:37 MCV 86.7 MCH 28.5 MCHC 32.9 RDW 13.2 Plt Count 132 L D MPV 9.3 L Immature Gran % (Auto) 1.6 H Neut % (Auto) 73.8 H Lymph % (Auto) 14.3 L [place] % (Auto) 9.8 Eos % (Auto) 0.1 Baso % (Auto) 0.4 Lymph # (Auto) 1.6 [place] # (Auto) 1.1 Eos # (Auto) 0.0 Baso # (Auto) 0.0 Abs Immat Gran (auto) 0.18 H Absolute Neuts (auto) 8.1 Absolute Nucleated RBC 0.000 Nucleated RBC % (auto) 0.0 Anion Gap Estim Creat Clear Calc Estimated GFR Random Glucose Lactic Acid Calcium Magnesium Total Bilirubin Direct Bilirubin AST ALT Alkaline Phosphatase Troponin I High Sens 10.7 Total Protein Albumin Lipase Urine Color Urine Appearance Urine pH Ur Specific [place] Urine Protein Urine Glucose (UA) Urine Ketones Urine Blood Urine Nitrite Ur Leukocyte Esterase Urine RBC Urine WBC Ur Squamous Epith Cells Urine Bacteria Hyaline Casts Urine Test COVID-19 (SHUN) COVID-19 Clin Com Influenza Type A (KEVEN) Negative Influenza Type A (PCR) Influenza Type B (KEVEN) Negative Influenza Type B (PCR) Influenza A & B Note See Note RSV RNA Qual (PCR) SARS-CoV-2 RNA (RT-PCR) 02/16/22 06:37 MCV MCH MCHC RDW Plt Count MPV Immature Gran % (Auto) Neut % (Auto) Lymph % (Auto) [place] % (Auto) Eos % (Auto) Baso % (Auto) Lymph # (Auto) [place] # (Auto) Eos # (Auto) Baso # (Auto) Abs Immat Gran (auto) Absolute Neuts (auto) Absolute Nucleated RBC Nucleated RBC % (auto) Anion Gap 9 L Estim Creat Clear Calc 107.2 Estimated GFR > 60 Random Glucose 80 Lactic Acid Calcium 7.2 L D Magnesium Total Bilirubin Direct Bilirubin AST ALT Alkaline Phosphatase Troponin I High Sens Total Protein Albumin Lipase Urine Color Urine Appearance Urine pH Ur Specific [place] Urine Protein Urine Glucose (UA) Urine Ketones Urine Blood Urine Nitrite Ur Leukocyte Esterase Urine RBC Urine WBC Ur Squamous Epith Cells Urine Bacteria Hyaline Casts Urine Test COVID-19 (SHUN) COVID-19 Clin Com Influenza Type A (KEVEN) Influenza Type A (PCR) Influenza Type B (KEVEN) Influenza Type B (PCR) Influenza A & B Note RSV RNA Qual (PCR) SARS-CoV-2 RNA (RT-PCR) Microbiology Microbiology Results: Microbiology 02/15/22 15:20 Urine Culture - Preliminary Urine clean catch - Urine louise top Gram negative jackelyn Assessment and Plan (1) Pyelonephritis: Status: Acute Plan This is a 41-year-old Mohawk speaking female who presents to the emergency department for evaluation of left flank pain. Sepsis due to acute pyelonephritis (left-sided): met sepsis criteria with tachycardia, wbc - wbc trending down Continue IV ceftriaxone Urine culture growing Gram-negative rods - follow final culture results Follow blood cultures Uterine leiomyoma on transvaginal ultrasound: Outpatient [employer] follow up recommended Liver mass CT scan showing hypoattenuating mass of the right lobe of liver liver ultrasound shows simple cyst-no further workup required Hypokalemia replace and follow BMP chronic normocytic anemia drop in H/H overnight no obvious bleeding noted, likely some degree of hemodilution after IVF given decrease in all cell lines follow CBC Thrombocytopenia likely r/t acute illness follow CBC DVT prophylaxis: Lovenox 40 mg daily Full code attending - dr. vazquez Requires ongoing inpatient hospitalization for management of urosepsis requiring IV antibiotics Time Spent With Patient Time: Total time managing care of this patient today ____ minutes. Quality Stroke Does the patient have a stroke diagnosis?: No VTE Prior VTE?: No VTE Risk Level:: Medical - moderate - high VTE Device Contraindication: Treatment Not Indicated VTE Drug Contraindication: N/A - Med Ordered
[2022-02-16 15:20] VITALS: BP 112/56; PULSE 82; RESP 20; TEMP 39.1; O2SAT 95
[2022-02-16] MEDS: Lactated Ringers 1,000 ML 100 ML IVCONT (15:29)
--- NOTE | 2022-02-16 15:36 | PC.NURSE ---
pt medicated w PRN tylenol for fever, LR running at 100ml/hr, provider aware.
[2022-02-16 16:38] VITALS: BP 108/62; PULSE 78; RESP 20; TEMP 37; O2SAT 96
[2022-02-16 19:32] VITALS: BP 120/84; PULSE 62; RESP 18; TEMP 36.9; O2SAT 98
[2022-02-16] MEDS: Ketorolac Tromethamine 30 MG/ML VIAL IVPUSH (19:55)
[2022-02-17] VITALS (7 sets, daily range): BP systolic 114–128; BP diastolic 63–69; PULSE 47–71; RESP 18; TEMP 36.8–39.1; O2SAT 92–98
[2022-02-17] MEDS: Lactated Ringers 1,000 ML 100 ML IVCONT ×3 (01:25→20:07)
[2022-02-17 06:22] LABS: Hemoglobin 9.6 g/dl (12.0-16.0); Mean Corpuscular HGB Conc 33.1 g/dl (31.0-35.0); Mean Corpuscular Hemoglobin 28.7 pg (27.0-33.0); Mean Corpuscular Volume 86.6 fL (80.0-98.0); Mean Platelet Volume 9.7 fL (9.4-12.3); Platelet Count 140 X10*3/uL (160-400); Red Blood Count 3.35 X10*6/uL (4.20-5.50); Red Cell Distribution Width 13.2 % (11.0-16.0); White Blood Count 6.6 X10*3/uL (4.8-10.8)
[2022-02-17 07:26] LABS: Anion Gap 13 (12-20); Blood Urea Nitrogen 14 mg/dL (9-16); Calcium 7.7 mg/dL (8.4-10.2); Carbon Dioxide 21 mmol/L (22-29); Chloride 108 mmol/L (96-108); Creatinine Clr Calc Pharmacy 102.3; Estimated Glomerular Filt Rate > 60; Glucose Random 93 mg/dL (60-115); Potassium 3.7 mmol/L (3.3-5.1); Sodium 138 mmol/L (135-145)
[2022-02-17] MEDS: cefTRIAXone sodium 1 GM in 0.9 % Sodium Chloride 50 ML IV (09:43)
[2022-02-17] MEDS: Acetaminophen 325 MG TABLET 650 MG PO ×2 (09:45→17:44)
--- NOTE | 2022-02-17 11:34 | P.CDIC_ITS ---
CDI Concurrent Query Documentation Clarification: PHYSICIAN'S DOCUMENTATION REQUEST Date of Query: 02/17/22 3356 Patient Name: Lesley Max Admit Date: 02/16/22 Dear Doctor, A review of the medical record indicates additional documentation may be needed. Please review below and update the documentation accordingly. Clinical Indicators: Is there a diagnosis that correlates with these lab findings: Risk Factors/Clinical Indicators/Treatments LABS 02/16 calcium 7.2 L 02/17 calcium 7.7 L Based on the above, could you clarify in the Progress Notes the appropriate diagnosis, if significant, that supports the above abnormalities and additional evaluation, monitoring, and/or treatment rendered: * Hypocalcemia or other etiology of lab findings * Labs indicate a diagnosis of (please specify) * Other (please specify) * Unable to determine Use of terms such as suspected, likely, concern for, or probable (associated with a specific diagnosis that is being evaluated, monitored, or treated as if it exists) are acceptable and can be coded in the inpatient setting, when documented at the time of discharge. Thank you, Azra Hoffman [facility], CDIS Extension: [phone] Please use your independent medical judgment in providing your response. THIS QUERY IS PART OF THE PERMANENT MEDICAL RECORD Provider Response: Other Other Diagnosis: corrected for low albumin, calcium is 8.3, basically normal. no hypocalcemia
--- NOTE | 2022-02-17 12:11 | HO.PM.IMPN ---
Subjective Subjective Date of Service: 02/17/22 Interval History: Seen and examined this morning. 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 No abdominal pain denies nausea but decreased appetite. Review of Systems Review of Systems: Yes all other systems are reviewed and are negative Constitutional Constitutional: Denies chills and Reports fever(s) Cardiovascular Cardiovascular: Denies chest pain Gastrointestinal Gastrointestinal: Denies abdominal pain, Denies nausea and Denies vomiting Physical Exam Vital Signs: Vital Signs: Last Vital Signs Temp 98.9 F 02/17/22 11:37 Pulse 60 02/17/22 08:00 Resp 18 02/17/22 08:00 BP 128/69 02/17/22 08:00 Pulse Ox 92 02/17/22 08:00 O2 Del Method 02/17/22 08:00 BMI result Body Mass Index 24.5 Const: General: comfortable, alert and awake Nutritional Appearance: average body habitus Orientation/consciousness: patient oriented x3 Resp: Effort & Inspection: normal respiratory effort and able to speak in complete sentences Auscultation: clear to auscultation bilaterally Cardio: Rate: regular rate Heart sounds: S1 normal heart sound present and S2 normal heart sound present GI: Inspection: No distended Palpation (GI): Soft to palpation : General: Yes CVA tenderness (improving) on the left Back/Spine/Pelvis: Back: CVA tenderness (improving) Neuro: General: patient oriented x3 and CN's II-XI intact bilaterally Extrem: General: Yes no pedal edema Objective Data Active Medications Acetaminophen (Acetaminophen 325 Mg Tablet) 650 mg PO Q6H PRN PRN Reason: Pain, Mild (Pain Scale 1-3) Last Admin: 02/17/22 09:45 Dose: 650 mg Documented By: AISSATOU Acetaminophen/Butalbital/Caffeine (Butalb/Acetamin/Caff 50/325/40 Tablet) 1 tab PO Q8H PRN PRN Reason: Migraine Headache Enoxaparin Sodium (Enoxaparin Sodium 40 Mg/0.4 Ml Syringe) 40 mg SUBCUT BEDTIME [facility] Last Admin: 02/16/22 19:55 Dose: 40 mg Documented By: ANA Ceftriaxone Sodium 1 gm/ (Sodium Chloride) 50 mls @ 100 mls/hr IV Q24H [facility] Last Infusion: 02/17/22 10:37 Dose: 0 mls/hr Documented By: AISSATOU Lactated Ringer's (Lr) 1,000 mls @ 100 mls/hr IVCONT .Q10H [facility] Last Admin: 02/17/22 11:10 Dose: 100 mls/hr Documented By: AISSATOU Melatonin (Melatonin 3 Mg Tablet) 6 mg PO BEDTIME PRN PRN Reason: Insomnia Ondansetron HCl (Ondansetron Hcl 4 Mg/2 Ml Vial) 4 mg IVPUSH Q8H PRN PRN Reason: Nausea and Vomiting Pharmacy Consult (Consult Rx Perform Med Rec) 1 each MISCELLANE ONCE PRN PRN Reason: Consult order Sodium Chloride (0.9 % Sodium Chloride Flush 3 Ml Syringe) 3 ml IVFLUSH QSHIFT [facility] Last Admin: 02/17/22 09:25 Dose: Not Given Documented By: AISSATOU Non-Admin Reason: IV Running Labs CBC & Chem 7: 02/17/22 05:35 02/17/22 05:35 Labs: Laboratory Results - last 24 hr 02/17/22 02/17/22 05:35 05:35 MCV 86.6 MCH 28.7 MCHC 33.1 RDW 13.2 Plt Count 140 L MPV 9.7 Absolute Nucleated RBC 0.000 Nucleated RBC % (auto) 0.0 Anion Gap 13 Estim Creat Clear Calc 102.3 Estimated GFR > 60 Random Glucose 93 Calcium 7.7 L D Microbiology Microbiology Results: Microbiology 02/15/22 15:20 Urine Culture - Final Urine clean catch - Urine louise top Escherichia coli 02/15/22 14:20 Blood Culture - Preliminary Blood - Venous No growth after 24 hours. 02/15/22 14:20 Blood Culture - Preliminary Blood - Venous No growth after 24 hours. Assessment and Plan (1) Pyelonephritis: Status: Acute Plan This is a 41-year-old Sierra Leonean speaking female who presents to the emergency department for evaluation of left flank pain. Sepsis due to acute pyelonephritis (left-sided): met sepsis criteria with tachycardia, wbc - wbc trending down. 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 vazquez Requires ongoing inpatient hospitalization for management of urosepsis requiring IV antibiotics Time Spent With Patient Time: Total time managing care of this patient today ____ minutes. Quality Stroke Does the patient have a stroke diagnosis?: No VTE Prior VTE?: No VTE Risk Level:: Medical - moderate - high VTE Device Contraindication: Treatment Not Indicated VTE Drug Contraindication: N/A - Med Ordered
[2022-02-17] MEDS: Enoxaparin Sodium 40 MG/0.4 ML SYRINGE SUBCUT (19:22)
[2022-02-17] MEDS: Butalb/Acetamin/Caff 50/325/40 TABLET 1 TAB PO (22:11)
[2022-02-18] MEDS: Acetaminophen 325 MG TABLET 650 MG PO (03:10)
[2022-02-18 03:32] VITALS: BP 142/70; PULSE 60; RESP 18; TEMP 37.6; O2SAT 99
[2022-02-18] MEDS: Lactated Ringers 1,000 ML 100 ML IVCONT (05:24)
[2022-02-18 08:00] VITALS: BP 139/71; PULSE 55; RESP 19; TEMP 37.3; O2SAT 99
[2022-02-18] MEDS: cefTRIAXone sodium 1 GM in 0.9 % Sodium Chloride 50 ML IV (10:13)
[2022-02-18] MEDS: 0.9 % Sodium Chloride Flush 3 ML SYRINGE IVFLUSH (10:13)
[2022-02-18] MEDS: Butalb/Acetamin/Caff 50/325/40 TABLET 1 TAB PO (10:22)
--- NOTE | 2022-02-18 11:24 | PM.DS ---
DS: Providers Provider Date of Service: 02/18/22 Date of admission: 02/16/22 00:14 Date of discharge: 02/18/22 Primary care physician: Unknown Physician Attending physician on discharge: Handy Gonzalez Discharging clinician: Lillian Shi DS: Diagnosis Discharge Diagnosis (1) Pyelonephritis: Status: Acute DS: Summary Hospital Course Hospital Course: From H&P on day of admission This is a 41-year-old Uzbek speaking female who presents to the emergency department for evaluation of left flank pain.? Patient states it started 4 days prior to presentation, and has been associated with dysuria and intermittent hematuria.? Patient states she tried Tylenol for the pain but it is constant and has been progressive over the last 4 days.? She has history of UTI.? No known pertinent past medical history and not on prescription medications.? Also has associated fever, chills and generalized body aches.? Patient denies chest discomfort, palpitations, shortness of breath, changes in bowel habits In the emergency department, urine suggestive of UTI and CT abdomen with left-sided nephritis. Hospital course by problem: Sepsis due to acute pyelonephritis (left-sided): met sepsis criteria with tachycardia, wbc - wbc trending down.? initially treated with IV ceftriaxone.. Urine culture growing e.coli sensitive to ceftriaxone. Blood cultures negative to date. leukocytosis resolved, patient has been afebrile for greater than 24 hours. patient will be discharged home to complete course of antibiotics. 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 liver ultrasound shows simple cyst-no further workup required Hypokalemia. Likely related to decreased PO intake. resolved with replacement chronic normocytic anemia. No obvious bleeding. denies rectal bleeding. H/H has remained stable, outpatient follow up. Thrombocytopenia. likely r/t acute illness/ sepsis. improving. will need outpatient follow-up Headache. patient reports intermittent headaches at baseline. Fioricet given prn,. recommended to follow up outpatient Time Spent with Patient Time attestation: Total time managing care of this patient today ____ minutes. Discharge coordination time: Greater than 30 minutes Quality: Safe Use of Opioids Does Pt have an Active Cancer Diagnosis on the Problem List?: No Quality: Stroke Does the patient have a stroke diagnosis?: No Physical Exam Vital Signs: Vital Signs: Last Vital Signs Temp 99.2 F 02/18/22 08:00 Pulse 55 02/18/22 08:00 Resp 19 02/18/22 08:00 BP 139/71 02/18/22 08:00 Pulse Ox 99 02/18/22 08:00 O2 Del Method 02/18/22 08:00 BMI result Body Mass Index 24.5 Const: General: comfortable, alert and awake Nutritional Appearance: average body habitus Orientation/consciousness: patient oriented x3 Resp: Effort & Inspection: normal respiratory effort and able to speak in complete sentences Auscultation: clear to auscultation bilaterally Cardio: Rate: regular rate Heart sounds: S1 normal heart sound present and S2 normal heart sound present GI: Inspection: No distended Palpation (GI): Soft to palpation Neuro: General: patient oriented x3 and CN's II-XI intact bilaterally Extrem: General: Yes no pedal edema DS: Data Data Completed and Pending Labs on day of discharge: Preliminary micro results at discharge 02/15/22 14:20 Blood Culture - Preliminary Blood - Venous No growth after 48 hours. 02/15/22 14:20 Blood Culture - Preliminary Blood - Venous No growth after 48 hours. Discharge Plan Discharge Anticipated Discharge Date/Time: 02/18/22 11:11 Patient Disposition: Home, Self-Care Discharge Diagnosis: acute pyelonephritis liver cyst fibroid anemia thrombocytopenia Referrals: Physician,Unknown J [Primary Care Provider] - 1 Week Discharge Medications: New dpfllwkcrr-bylloxawrkalu-fyai 50-325-40 mg Tablet 1 tab PO Q12H PRN (Reason: Migraine Headache) Qty: 7 0RF cefuroxime axetil 500 mg tablet 500 mg PO BID 10 Days Qty: 20 0RF Continued acetaminophen 325 mg Tablet 650 mg PO Q4H PRN (Reason: Pain) ibuprofen 200 mg Tablet 400 mg PO Q4H PRN (Reason: Pain) Discharge Orders: Discharge Order (Routine); Ordered 02/18/22 Ordered By: Lillian Shi Activity on Discharge: As tolerated Stand Alone Forms: Patient Portal Discharge page Care Plan Goals: see below Health Concerns: pyelonephritis (kdiney infection) anemia liver cyst large uterine fibroid Plan of Treatment: complete course of antibiotics as prescribed Call to obtain PCP- recommend to call [facility] as soon as possible (number given) can use Fioricet prn for headache Fioricet has tylenol in it. do not exceed 3.9g of tylenol daily from all sources will need follow up with WATER QUALITY MANAGER for management of uterine fibroid will need primary care provider to follow CBC for anemia Assessment: acute pyelonephritis Discharge Date/Time: 02/18/22 13:15
--- NOTE | 2022-02-18 11:33 | MHC.CM.PN ---
PT FULLY INDEPENDENT AND LIVING WITH HER PT WILL DC HOME TODAY WITH NO SERVICES FAMILY TO TRANSPORT
== END 2022-02-18 13:15 | disposition home or self-care (01) | DRG 720 ==
LOC: HO.ED 22:39 → HO.EDOVER 02-16 01:06 → HO.S3 02-16 14:58
PROVIDERS: Physician Assistant; Admitting Provider Student in an Organized Health Care Education/Training Program; Emergency Provider Student in an Organized Health Care Education/Training Program; Visit Provider Physician Assistant Medical
DX: A41.9 Sepsis, unspecified organism (principal); D69.6 Thrombocytopenia, unspecified; K76.89 Other specified diseases of liver; E87.6 Hypokalemia; D25.9 Leiomyoma of uterus, unspecified; N10 Acute pyelonephritis; D64.9 Anemia, unspecified; Z20.822 Contact with and (suspected) exposure to COVID-19; Z79.899 Other long term (current) drug therapy
CPT/HCPCS: 0241U; 36415; 71045; 74177; 76705; 76830; 76856; 80048; 80076; 81001; 81025; 83605; 83690; 83735; 84484; 85025; 85027; 87040; 87086; 87088; 87186; 87502; 87635; 93005; 96361; 96374; 96375; 99221; 99285; J0696; J1650; J1885; J1956; J2270; J2405; Q9967

== ENCOUNTER 2022-08-29 08:47 | Emergency (ER) | payer OTHER, SELFPAY ==
--- NOTE | ~2022-08-29 | CT_ITS ---
EXAMINATION: CT ABDOMEN AND PELVIS WITH CONTRAST CLINICAL INFORMATION: Abdominal pain. COMPARISON: 02/15/2022 TECHNIQUE: Multidetector volumetric images were obtained from the superior aspect of the liver through the pubic symphysis following administration 85 mL of Omnipaque 350 intravenous contrast. Sagittal and coronal reformatted images were obtained on the technologist's workstation. Oral contrast: No This CT examination was performed using dose optimization techniques as appropriate, variously including the following: *Automated exposure control *Adjustment of mA and/or kV according to patient size (this includes techniques or standardized protocols for targeted exams where dose is matched to indication/reason for exam; i.e. extremities or head) *Use of iterative reconstruction technique DLP: 419 mGy-cm FINDINGS: LUNG BASES: The visualized lung bases are unremarkable. LIVER, GALLBLADDER, AND BILIARY TREE: The liver is normal in size and contour. 1.8 cm hypodensity is stable. No focal hepatic lesion or biliary ductal dilatation is present. The gallbladder is distended. PANCREAS: Normal contour. SPLEEN: Not enlarged. ADRENAL GLANDS: No adrenal masses. KIDNEYS AND URETERS: Symmetric in size and enhancement. There is striated nephrogram in the anterior lower pole of the right kidney seen on image 40 of series 3. There is minimal associated perinephric stranding. No hydronephrosis. BLADDER: Unremarkable. GASTROINTESTINAL TRACT: Small and large bowel loops are of normal caliber. No small bowel obstruction. ABDOMINAL WALL: No significant hernia is appreciated. LYMPH NODES: No bulky abdominal or pelvic lymphadenopathy. VASCULAR: Normal caliber abdominal aorta. PELVIC VISCERA: Enlarged uterus. Left fundal fibroid measures 6.4 x 6.0 x 7.0 cm. The endometrium is displaced posteriorly and to the right. Involuting corpus luteum in the right ovary. OSSEOUS STRUCTURES: No destructive bone lesions. CT/CT abdomen pelvis w IV con IMPRESSION: Striated nephrogram anterior lower pole right kidney. This could represent infection, vascular injury, contusion or underlying lesion. Advise clinical correlation and short interval follow-up imaging. Enlarged fibroid uterus. Left fundal fibroid measures 6.4 x 6.0 x 7.0 cm.
[2022-08-29 08:52] VITALS: BP 117/79; PULSE 89; RESP 22; TEMP 37.1; O2SAT 100
[2022-08-29 09:04] VITALS: BP 112/69; PULSE 93; RESP 20; TEMP 36.6; O2SAT 98; BMI 26.5
[2022-08-29 11:14] LABS: Appearance Urine Clear; Color Urine Yellow; Glucose Urine UA Negative (Negative); Leukocyte Esterase Urine Small (1+) (Negative); Nitrite Urine Negative (Negative); Specific Gravity - Urine 1.015 (1.005-1.025); UMIC TRIGGER UACC YES; Urine Blood Small (1+) (Negative); Urine Ketones Negative (Negative); Urine Protein Negative (Neg-Trace)
[2022-08-29 11:50] LABS: Bacteria Urine Trace (None Seen); Hyaline Casts Urine 0-2 /LPF (0-2); Squamous Epithelial Cell Urine 0-2 /HPF (0-2); UACC Culture Trigger YES
--- NOTE | 2022-08-29 12:25 | ED_ITS ---
HPI - General Adult General Chief complaint: Abdominal Pain Stated complaint: chills abd pain Time Seen by Provider: 08/29/22 12:19 Source: patient and correction officer reformatory Mode of arrival: ambulatory Limitations: no limitations History of Present Illness HPI narrative: Patient is a 42-year-old Irish speaking female presenting to the emergency department with bilateral lower abdominal pain radiating to her bilateral flank areas since 2:00 a.m. this morning. She also reports increased white vaginal discharge as well as itching and burning. She also reports burning with urination. She endorses nausea but denies vomiting. Denies diarrhea or constipation. Denies fevers. Denies any bright red blood in stool or dark, tarry stool. Denies concern for STIs. Reports pain increases with intercourse. MD complaint: Abdominal pain Onset (ago): hour(s) Location: abdomen Radiation: back Severity: severe Quality: sharp Pain Consistency: constant Relieving factors: rest Exacerbating factors: movement Associated symptoms: other (Increased vaginal discharge, itching and burning) Treatments prior to arrival: none Related Data Home Medications Medication Instructions Recorded Confirmed acetaminophen 325 mg tablet 650 mg PO Q4H PRN Pain 02/16/22 02/16/22 ibuprofen 200 mg tablet 400 mg PO Q4H PRN Pain 02/16/22 02/16/22 Previous Rx's Medication Instructions Recorded tmjhviouvw-eypyxyuvrsxmd-jynhdach 1 tab PO Q12H PRN Migraine 02/18/22 50 mg-325 mg-40 mg tablet Headache #7 tabs cefuroxime axetil 500 mg tablet 500 mg PO BID 10 days #20 tabs 02/18/22 cefuroxime axetil 500 mg tablet 500 mg PO BID #20 tabs 08/29/22 Allergies Allergy/AdvReac Type Severity Reaction Status Date / Time No Known Allergies Allergy Verified 12/26/21 14:34 Review of Systems Review of Systems: As per HPI. Yes all other systems are reviewed and are negative Constitutional: Constitutional: Reports as per HPI [facility] Social History Social History Household Members: Spouse Housing: House Do you presently have visiting nurse or other home services: No Alcohol intake: never Patient Tobacco Use Status: Never used Tobacco Smoked in Last 30 Days: No Use of substances other than those prescribed or required for medical reasons: No Advance Directives: No Advance Directives Information Provided: No Patient : No Physical Exam ED Vital Signs: Vital Signs - 24 hr 08/29/22 08:52 08/29/22 09:04 08/29/22 13:16 Temperature 98.8 F 97.8 F 98.6 F Pulse Rate 89 93 67 Respiratory Rate 22 H 20 16 Blood Pressure 117/79 112/69 102/63 Pulse Oximetry 100 98 98 Oxygen Delivery Method Room Air Room Air Room Air 08/29/22 15:01 Temperature 97.8 F Pulse Rate 73 Respiratory Rate 16 Blood Pressure 98/51 L Pulse Oximetry 98 Oxygen Delivery Method Room Air BMI result Body Mass Index 26.5 Vital signs have been reviewed and appear to be correct. Blood pressure normal. Heart rate normal. Respiratory rate normal. Temperature normal. Oxygen saturation normal. Const General: cooperative, healthy appearing and no acute distress Orientation/consciousness: oriented to person, oriented to place, oriented to time and patient oriented x3 Limitations: no limitations HENMT Head: Yes normocephalic and Yes atraumatic Ears: external ears normal General nose exam: Normal external nose present Face and sinus: Yes face symmetric Mouth: oropharynx normal and moist mucous membranes Throat: Yes uvula midline Eyes Pupils: Equal, round and reactive pupils present Neck Neck: Yes normal visual inspection and Yes supple Resp Effort & Inspection: normal respiratory effort and able to speak in complete sentences Auscultation: clear to auscultation bilaterally Cardio Rate: regular rate Rhythm: regular rhythm Heart sounds: S1 normal heart sound present and S2 normal heart sound present GI Inspection: Yes normal to inspection Palpation (GI): Soft to palpation, Tenderness to palpation present (GI) in the LLQ and in the RLQ; with no rebound tenderness and no guarding Auscultation: normoactive bowel sounds Other: Pelvic exam chaperoned by SOILA Singh Tech. General: Yes no CVA tenderness External Female Exam: normal external appearance Speculum Exam - Vagina: normal appearance of the vagina, normal palpation, abnormal vaginal discharge white and yellow and not erythematous Speculum Exam - Cervix: normal appearance of the cervix, normal palpation, Ce rvical os closed, Abnormal cervical discharge present yellow, no lesions, no masses and nontender Bimanual exam- vagina & uterus: normal palpation, normal palpation and No Cerv ical tenderness present Bimanual Exam- Adnexa, other: tender bilaterally (R>L) Back/Spine/Pelvis Back: no CVA tenderness Skin General skin exam: elasticity normal and turgor normal Neuro General: oriented to person, oriented to place, oriented to time, patient oriented x3, moves all extremities, no focal motor deficits and CN's II-XI intact bilaterally Cranial nerves: Yes Equal, round and reactive pupils present Cognition (Neuro): normal cognition Extrem General: Yes full ROM, Yes no pedal edema and Yes no calf tenderness Psych Mental Status: mental status grossly normal Affect: normal affect Thought process: Normal thought process present Medications Administered Discontinued Medications Generic Name Dose Route Start Last Admin Trade Name Lacey PRN Reason Stop Dose Admin Acetaminophen 650 mg 08/29/22 15:23 08/29/22 15:27 Acetaminophen 325 Mg Tablet PO 08/29/22 15:24 650 mg ONCE ONE Administration Iohexol 100 ml 08/29/22 14:07 08/29/22 14:08 Iohexol 350 Mg/Ml 100 Ml Infus..Btl IV 08/29/22 14:08 85 ml ONCE ONE Administration Medical Decision Making Medical Decision Making MDM Narrative: Patient is a 42-year-old Irish speaking female presenting to the emergency department with bilateral lower abdominal pain radiating to her bilateral flank areas since 2:00 a.m. this morning. On exam patient is awake, A+Ox3, VS WNL, afebrile, normal neurological exam without focal deficits, abdomen soft, tender to palpation bilateral lower quadrants, normoactive bowel sounds, no CVA tenderness, white/yellow discharge noted on pelvic exam, no CMT, but does have bilateral adnexal tenderness, R>L. Given reported symptoms and physical exam findings, differential includes UTI/pyelonephritis, appendicitis, ovarian cyst, STI, cervicitis, PID, TOA. Labs notable for leukocytosis, urine positive for 1+ blood, 1+ leukocytes, 6-10 WBCs, trace bacteria, negative nitrites. No trichamonas or yeast found. CT NG negative. CT notable for striated nephrogram anterior lower pole of right kidney. My interpretation is in agreement with the radiologist's interpretation. Given urine results as well as CT results, will treat for UTI at this time with cefuroxime BID x 7 days. Prior urine cultures were positive for E. coli which cefuroxime would cover. All results discussed at bedside and all questions answered via correction officer reformatory. Patient states that she does not have an AUTOMOTIVE HARDWARE ENGINEER currently, will refer to Dr. Trent. Return precautions discussed. Instructed patient to follow up with PCP. Patient verbalized understanding of and agreement with plan. Differential Diagnosis Differential Diagnoses: The differential diagnosis associated with the presen tation includes As per MDM. Admission/Observation Consideration of admission/observation: Escalation of care including admissio n/observation considered Considered on arrival given abdominal tenderness. Lab Data [facility] Lab Attestation statement: I reviewed the patient's lab results. As per MDM. 08/29/22 13:07 08/29/22 13:07 Labs: Lab Results 08/29/22 08/29/22 08/29/22 Range/Units 13:07 13:07 Unknown WBC 16.5 H (4.8-10.8) X10*3/uL RBC 4.30 D (4.20-5.50) X10*6/uL Hgb 12.3 D (12.0-16.0) g/dl Hct 37.5 D (37.0-47.0) % MCV 87.2 (80.0-98.0) fL MCH 28.6 (27.0-33.0) pg MCHC 32.8 (31.0-35.0) g/dl RDW 12.2 (11.0-16.0) % Plt Count 236 D (160-400) X10*3/uL MPV 9.6 (9.4-12.3) fL Absolute Nucleated RBC 0.000 (0.0-0.012) X10*3/uL Nucleated RBC % (auto) 0.0 (0.0-0.2) /100WBC Sodium 140 (135-145) mmol/L Potassium 3.7 (3.3-5.1) mmol/L Chloride 108 (96-108) mmol/L Carbon Dioxide 26 (22-29) mmol/L Anion Gap 10 L (12-20) BUN 11 (9-16) mg/dL Creatinine 0.69 (0.5-1.4) mg/dL Estim Creat Clear Calc 96.4 Estimated GFR > 60 Random Glucose 112 (60-115) mg/dL Calcium 9.2 D (8.4-10.2) mg/dL Total Bilirubin 0.6 (0.0-1.0) mg/dL Direct Bilirubin 0.2 (0.0-0.5) mg/dL AST 28 (5-31) U/L ALT 34 H (0-31) U/L Alkaline Phosphatase 85 (39-117) U/L Total Protein 7.1 (6.5-8.0) g/dL Albumin 3.8 (3.5-5.0) g/dL Lipase 16 (8-78) U/L Urine Color Yellow Urine Appearance Clear Urine pH 7.0 (5.0-9.0) Ur Specific [place] 1.015 (1.005-1.025) Urine Protein Negative (Neg-Trace) mg/dL Urine Glucose (UA) Negative (Negative) mg/dL Urine Ketones Negative (Negative) mg/dL Urine Blood Small (1+) H (Negative) Urine Nitrite Negative (Negative) Ur Leukocyte Esterase Small (1+) H (Negative) Urine RBC 3-5 H (0-2) /HPF Urine WBC 6-10 (0-5) /HPF Ur Squamous Epith Cells 0-2 (0-2) /HPF Urine Bacteria Trace (None Seen) Hyaline Casts 0-2 (0-2) /LPF Independent Interpretation I performed an independent interpretation of an: CT Scan Interpretation: striated nephrogram anterior pole right kidney representing infection Radiology Impression Discussion of test interpretation with radiology: I have reviewed the radiologist's reading. Radiologist Impression: CT/CT abdomen pelvis w IV con IMPRESSION: Striated nephrogram anterior lower pole right kidney. This could represent infection, vascular injury, contusion or underlying lesion. Advise clinical correlation and short interval follow-up imaging. ? Enlarged fibroid uterus. Left fundal fibroid measures 6.4 x 6.0 x 7.0 cm. External Record Review External record reviewed: Inpatient record, Office record and Outpatient record Prescription Management I considered prescription management with: Antibiotic Discharge Plan Discharge Clinical Impression: UTI (urinary tract infection), Uterine fibroid Patient Disposition: Home, Self-Care Instructions: Urinary Tract Infection in Women (DC) Additional Instructions: Por favor, complete o curso completo de antibi?ticos conforme prescrito. Retorne ao departamento de emerg?ncia se voc? desenvolver piora da sid, febre de 100,4 F ou mais, aumento do corrimento vaginal, piora da sid bernardino oscar ou qualquer outro sintoma preocupante. Ligue para o Dr. Trent para marcar deepti consulta sobre seus miomas uterinos. Prescriptions: New cefuroxime axetil 500 mg tablet 500 mg PO BID Qty: 20 0RF No Action acetaminophen 325 mg Tablet 650 mg PO Q4H PRN (Reason: Pain) ibuprofen 200 mg Tablet 400 mg PO Q4H PRN (Reason: Pain) zvohvlowhy-srivcvcvevfaq-nsxa 50-325-40 mg Tablet 1 tab PO Q12H PRN (Reason: Migraine Headache) Qty: 7 0RF cefuroxime axetil 500 mg tablet 500 mg PO BID 10 Days Qty: 20 0RF Referrals: Topher Trent MD [Physician] -
[2022-08-29 13:16] VITALS: BP 102/63; PULSE 67; RESP 16; TEMP 37; O2SAT 98
[2022-08-29 13:24] LABS: Hematocrit 37.5 % (37.0-47.0); Hemoglobin 12.3 g/dl (12.0-16.0); Mean Corpuscular HGB Conc 32.8 g/dl (31.0-35.0); Mean Corpuscular Hemoglobin 28.6 pg (27.0-33.0); Mean Corpuscular Volume 87.2 fL (80.0-98.0); Mean Platelet Volume 9.6 fL (9.4-12.3); Platelet Count 236 X10*3/uL (160-400); Red Cell Distribution Width 12.2 % (11.0-16.0); White Blood Count 16.5 X10*3/uL (4.8-10.8)
[2022-08-29 13:41] LABS: Alanine Aminotransferase 34 U/L (0-31); Albumin Level 3.8 g/dL (3.5-5.0); Alkaline Phosphatase 85 U/L (39-117); Anion Gap 10 (12-20); Aspartate Amino Transferase 28 U/L (5-31); Bilirubin Direct 0.2 mg/dL (0.0-0.5); Bilirubin Total 0.6 mg/dL (0.0-1.0); Blood Urea Nitrogen 11 mg/dL (9-16); Calcium 9.2 mg/dL (8.4-10.2); Carbon Dioxide 26 mmol/L (22-29); Chloride 108 mmol/L (96-108); Creatinine Clr Calc Pharmacy 96.4; Estimated Glomerular Filt Rate > 60; Glucose Random 112 mg/dL (60-115); Lipase 16 U/L (8-78); Potassium 3.7 mmol/L (3.3-5.1); Sodium 140 mmol/L (135-145); Total Protein 7.1 g/dL (6.5-8.0)
[2022-08-29] MEDS: iohexoL 350 MG/ML 100 ML INFUS..BTL IV (14:08)
[2022-08-29 15:01] VITALS: BP 98/51; PULSE 73; RESP 16; TEMP 36.6; O2SAT 98
[2022-08-29] MEDS: Acetaminophen 325 MG TABLET 650 MG PO (15:27)
[2022-08-29 16:07] LABS: CT PCR NOT DETECTED (Not Detect.); NG PCR NOT DETECTED (Not Detect.)
[2022-08-29 16:17] LABS: HCG Quantitative < 2 mIU/mL
[2022-08-30 12:20] LABS: BV Int Neg Control Negative (Negative); BV Int Pos Control Positive (Positive)
== END 2022-08-29 16:52 | disposition home or self-care (01) ==
PROVIDERS: Registered Nurse Emergency; Emergency Provider Emergency Medicine
DX: N39.0 Urinary tract infection, site not specified (principal); B96.20 Unspecified Escherichia coli [E. coli] as the cause of diseases classified elsewhere; D25.9 Leiomyoma of uterus, unspecified; R10.30 Lower abdominal pain, unspecified; R11.0 Nausea; Z79.899 Other long term (current) drug therapy
CPT/HCPCS: 0353U; 36415; 74177; 80048; 80076; 81001; 83690; 84702; 85027; 87086; 87088; 87186; 87480; 87510; 87660; 99284; Q9967

== ENCOUNTER 2022-09-01 13:32 | Outpatient (AMB) | payer OTHER, SELFPAY ==
--- NOTE | 2022-09-01 14:02 | A.OFFVIS_ITS ---
Intake Vital Signs 09/01/22 14:06 Height 5 ft 2 in Weight 138 lb BMI 25.2 BP 126/66 Intake Visit Reasons: ER Follow up Intake Note: Strong stomach pains, has also been having white and yellowish discharge no smell. The patient agreed to use of a medical chemist during this encounter. Scribed for SAMANTHA Thomas by Manisha Navarrete medical chemist, on 09/01/2022 at 2:25 pm EST. Purse Maker Required: Yes Purse Maker Language: Czech Purse Maker Name: Viviana [id number] Information Interpreted: non-clinical & clinical Spa Assistant Manager: Spa Assistant Manager Present (Aidyn) Allergies No Known Allergies Allergy (Verified 09/01/22 14:08) Is last menstrual period known: Yes Last menstrual period: 08/31/22 Post menopausal: No HPI HPI Comments History of Present Illness Details She is here for a ER follow up regarding fibroids. Reports her menses are regular lasting 5-6 days but experiencing strong pelvic pains, back pain, pale yellow discharge, no odor. Reports painful intimacy. Prior CT, US scan w/fibroid noted 02/2022. PFSH Medical History Fibroid Pain in pelvis Surgical History Hx of section Hx of tubal ligation Family History Sister Breast cancer Social History Household Members: Spouse Housing: House Do you presently have visiting nurse or other home services: No Alcohol intake: never Patient Tobacco Use Status: Never used Tobacco Female Reproductive History Menstrual Age of Menarche: 16 Duration of menses: 6-7 days Date of last menstrual period: 08/31/22 control method: permanent sterilization Total pregnancies: 2 Full term: 2 Number of Living Children: 2 Physical Exam Vital Signs: Last Vital Signs BP 126/66 09/01/22 14:06 BMI result Body Mass Index 25.2 Const General: cooperative, healthy appearing, comfortable, no acute distress, well developed, alert and awake Other: General: Yes bladder normal to palpation External Female Exam: normal external appearance and normal appearance of the urethra Speculum Exam - Vagina: normal appearance of the vagina, normal palpation and other (dark bloody discharge) Speculum Exam - Cervix: normal appearance of the cervix, normal palpation and Other cervical findings present Bimanual exam- vagina & uterus: normal bimanual exam, normal palpation, bladder normal to palpation, normal palpation and enlarged Bimanual Exam- Adnexa, other: normal adnexae and no masses Results Reviewed Results Reviewed: EXAMINATION:?02/15/22 US PELVIS CLINICAL INFORMATION:? Abdominal pain. History of uterine mass, fibroid. COMPARISON: Pelvic ultrasound from 01/18/2022 TECHNIQUE: Ultrasound of the pelvis is performed using both transabdominal and transvaginal transducers. FINDINGS: UTERUS AND CERVIX The anteflexed, anteverted uterus measures 10.5 x 7 x 8.5 cm ([id number] x AP x transverse dimension). There are small nabothian cysts of the cervix. A heterogeneous left-sided intramural leiomyoma measures up to 6.2 cm maximum dimension (image 20 of 69). No new uterine abnormality compared to 01/18/2022. The endometrium measures 0.7 cm in AP thickness (image 8 of 69). ADNEXA: The right ovary is 4.3 x 3 x 3.2 cm and mildly enlarged due to presence of a 2.2 cm corpus luteum. The left ovary is 3.7 x 1.2 x 3.3 cm. Normal-sized follicles are present. No adnexal masses. FREE FLUID: Small amount of simple appearing free fluid is present in the posterior cul-de-sac. US/US pelvic and transvaginal IMPRESSION: *? No acute sonographic abnormalities in the pelvis. *? Large left-sided intramural leiomyoma measures up to 6.2 cm. 08/29/[address]/CT abdomen pelvis w IV con IMPRESSION: Striated nephrogram anterior lower pole right kidney. This could represent infection, vascular injury, contusion or underlying lesion. Advise clinical correlation and short interval follow-up imaging. ? Enlarged fibroid uterus. Left fundal fibroid measures 6.4 x 6.0 x 7.0 cm. Assessment & Plan Assessment & Plan (1) Encounter to discuss test results: Code(s): Z71.2 - Person consulting for explanation of examination or test findings Plan: Discussed: CT results: Striated nephrogram anterior lower pole right kidney. This could represent infection, vascular injury, contusion or underlying lesion. Advise clinical correlation and short interval follow-up imaging. Enlarged fibroid uterus. Left fundal fibroid measures 6.4 x 6.0 x 7.0 cm. Leiomyoma: common pelvic neoplasm. Differential diagnosis-may include leiomyosarcoma which is a rare uterine sarcoma 3-7/100,000, difficult to distinguish from fibroids on ultrasound from uterine sarcoma's. Unlikely any single test will have a highly positive predictive value. Hysterectomy is not recommended for sole purpose of excluding malignant neoplasm. Report any PMB/AUB. Pelvic pressure, bloating, or pain. Consult for surgical exploration, Robotics/open procedure for myomectomy, hysterectomy verses expectant management offered. Expectant management follow up in 6 months, then yearly for stability. She opts to consult with [facility] specialist. Schedule AG. All of her questions and concerns were addressed to the best of my ability and shared decision making. She is agreeable to plan of care. 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
[2022-09-01 14:06] VITALS: BP 126/66; BMI 25.2
== END 2022-09-01 14:53 | disposition home or self-care (01) ==
LOC: HO.HWS 13:32
PROVIDERS: Visit Provider Advanced Practice Midwife
DX: Z71.2 Person consulting for explanation of examination or test findings (principal); D21.9 Benign neoplasm of connective and other soft tissue, unspecified; N94.10 Unspecified dyspareunia; R10.2 Pelvic and perineal pain; N89.8 Other specified noninflammatory disorders of vagina
CPT/HCPCS: 99204

== ENCOUNTER → 2022-09-01 13:32 | Outpatient (BNVA) | payer OTHER, SELFPAY | PROVIDERS: Visit Provider Advanced Practice Midwife | DX: Z71.2 Person consulting for explanation of examination or test findings (principal); D21.9 Benign neoplasm of connective and other soft tissue, unspecified; N94.10 Unspecified dyspareunia; R10.2 Pelvic and perineal pain; N89.8 Other specified noninflammatory disorders of vagina | CPT/HCPCS: 99202 ==